=== PATIENT | male | born 1965 | race Caucasian/White ===

== ENCOUNTER 2023-10-05 12:05 | Observation (INO) ==
[2023-10-05 14:30] LABS: Basophils # (auto) 0.05 K/uL (0.00-0.20); Basophils % (auto) 0.6 %; Eosinophils # (auto) 0.29 K/uL (0.00-0.50); Eosinophils % (auto) 3.6 %; Hematocrit (blood only) 47.9 % (42.0-52.0); Hemoglobin 15.9 g/dl (14.0-18.0); Immature Granulocytes # (auto) 0.02 K/uL (0.01-0.20); Immature Granulocytes % (auto) 0.2 %; Lymphocytes # (auto) 2.45 K/uL (1.20-3.40); Lymphocytes % (auto) 30.1 %; Mean Corpuscular Hemoglobin 28.5 pg (25.0-34.0); Mean Corpuscular Hgb Conc 33.2 g/dL (32.0-36.0); Mean Corpuscular Volume 85.8 fL (80.0-100.0); Mean Platelet Volume 8.7 fL (9.4-12.4); Neutrophils # (auto) 4.44 K/uL (1.40-6.50); Neutrophils % (auto) 54.5 %; Platelet Count 277 K/uL (130-400); RDW Coefficient of Variation 12.5 % (11.5-14.5); RDW Standard Deviation 38.5 fL (36.4-46.3); Red Blood Count 5.58 M/uL (4.70-6.10); White Blood Count 8.15 K/ul (4.8-10.8)
[2023-10-05 14:49] LABS: Albumin Globulin Ratio 1.5 (0.9-2); Albumin Level 4.6 gm/dl (3.4-5.0); BUN Creatinine Ratio 26.6 (10-20); Calcium 9.6 mg/dl (8.6-10.3); Creatinine Clr Calc Pharmacy 118.8 ml/min; Est GFR (African American) 114.7 ml/min; Globulin 3.1 gm/dl (2.5-4.0); Potassium 3.9 mmol/L (3.5-5.1); Total Protein 7.7 gm/dl (6.0-8.3)
[2023-10-05 14:53] LABS: Troponin I High Sensitivity 4.3 pg/ml (0-20)
[2023-10-05 14:58] LABS: INR 0.9 (0.9-1.1); Partial Thromboplastin Time 28 Seconds (21-31); Prothrombin Time 10.3 Seconds (9.0-12.0)
--- NOTE | 2023-10-05 16:09 | Electrocardiogram Report ---
Test Reason : Blood Pressure : / mmHG Vent. Rate : 071 BPM Atrial Rate : 071 BPM P-R Int : 164 ms QRS Dur : 080 ms QT Int : 386 ms P-R-T Axes : 047 038 066 degrees QTc Int : 419 ms Normal sinus rhythm Normal ECG No previous ECGs available Confirmed by Kamran Mauro ([id number]) on 10/05/2023 4:09:16 PM Referred By: Confirmed By:Kamran Mauro
--- NOTE | 2023-10-05 16:24 | Emergency Department Note ---
Impression & Plan Hypertension, Hypertensive urgency ED Provider Note ED Provider Note NAME: MICHAEL GRIFFIN AGE:58 SEX: Male : 1965 ARRIVES VIA: Private vehicle INFORMANT: Patient ED PROVIDER(s): Emerita Holguin DO CHIEF COMPLAINT: High blood pressure HPI: This is a 58-year-old male presents emergency department after being referred here by his PCPs office due to concern for high blood pressure. Patient states he has a long history of high blood pressure and has been on losartan for many years. Dose was gradually increased over the course of these years and now he takes 100 mg daily. About a week ago he was not feeling well and blood pressure was checked and found to be elevated. PCP directed them to the emergency room at [facility] where he underwent blood work, check of urine, a CT head without contrast, and an ultrasound of his kidneys. He states that was all reported to him as normal as well. He was started on carvedilol 12.5 mg additionally. He followed up with his PCP and this was increased to 12.5 mg twice daily. He states he has been taking these as directed. No change in caffeine consumption, no change in stress level, no change in diet. Patient states he has had intermittent headaches, slightly blurred vision, a sense of "fogginess", and increased agitation/moodiness. No recent travel, no recent illness. Patient was scheduled to have an MRI and carotid Dopplers performed today however when they checked his blood pressure and it was markedly elevated and spoke with office staff they were told to go directly to the ER and that the tests should be rescheduled. PAST MEDICAL HISTORY:See Below PAST SURGICAL HISTORY:See Below FAMILY HISTORY:See Below SOCIAL HISTORY:See Below HOME MEDICATIONS:See Below ALLERGIES:See Below VITALS:See Below PHYSICAL EXAMINATION: GENERAL: alert, well appearing, well nourished, no distress, non-toxic EYE EXAM: normal conjunctiva, PERRL and EOM's grossly intact, no nystagmus OROPHARYNX: no exudate, no erythema, lips, buccal mucosa, and tongue normal and mucous membranes are moist NECK: supple, no nuchal rigidity, no adenopathy, non-tender LUNGS: Clear to auscultation. Normal chest wall mechanics, no w/r/r HEART: no murmurs, S1 normal and S2 normal ABDOMEN: abdomen soft, non-tender, normo-active bowel sounds, no masses, no rebound or guarding. BACK: Back is symmetrical on inspection and there is no deformity, no midline tenderness, no CVA tenderness. SKIN: no rashes, petechiae, orbruising UPPER EXTREMITIES: upper extremities are grossly normal. FROM, nml pulses b/l. LOWER EXTREMITIES: No pitting edema. FROM, nml pulses b/l. NEURO EXAM: Normal sensorium, cranial nerves II-XII grossly intact, normal speech, no facial droop,nogross weakness of arms, no gross weakness of legs. Gross sensation intact. No ataxia. Negative pronator drift, normal [id number]. Vital Signs: reviewed and remarkable Differential Diagnosis: headache, tension headache, cluster headache, migraine, subarachnoid hemorrhage, meningitis, mass, central venous thrombus, concussion, trauma and epidural/subdural hemorrhage. MEDICAL DECISION MAKING: This is a 58-year-old male with a history of hypertension who presents after being referred here by his PCP due to markedly elevated blood pressure reading at home today and symptoms of headache, blurred vision, "fogginess", and agitation. Patient noted to be markedly hypertensive on arrival here however other vital signs stable. Labs drawn and sent, IV established, EKG performed at bedside interpreted by me and once a patient room was available he was monitored on telemetry. Patient was initially seen in the waiting room area. Given symptoms and recent negative head CT, patient was sent for MRI of the brain which was reassuring. Additional labs were added. Patient given IV hydralazine with some improvement and then a dose of his oral carvedilol that had recently been initiated. Patient would have some temporary improvement and then blood pressures would begin increasing again. Additional IV hydralazine was added. After discussion with the patient and his at bedside regarding possible differential diagnosis, the importance of symptomatic control especially in light of his comorbidities, we discussed options for disposition. After additional discussion, we felt inpatient evaluation for improved blood pressure management as well as possible additional evaluation of the etiology of his worsening blood pressure recently was more reasonable. We discussed patient may benefit from an echo additionally. Case discussed with the hospitalist team for additional evaluation and management. Consultation(s): 2111: Discussed with Dr. Werner, [facility] hospitalist team, for additional evaluation and management. ER Treatment Provided: See below Diagnostics Interpreted By Me: -ECG: Normal sinus at 71, normal axis, normal intervals, no acute ST/T wave changes -Cardiac Monitoring: An order was placed for continuous cardiac monitoring. The monitor shows a rate of 72 with normal sinus rhythm. -Laboratory studies: As stated above and show below. -Imaging studies: X-ray Chest: A single view study of the chest was reviewed and was negative for cardiomegaly, focal infiltrate, effusion, pulmonary edema, or wide mediastinum. Triage Nursing Note Reviewed Prior/Outside Records Reviewed - CT head from [facility] reviewed and was negative per report, labs from that ER visit also reviewed and were reassuring Past Med/Surg History Social History Smoking Status: Never smoker Feels Safe at Home: Yes Allergies Allergies Allergy/AdvReac Type Severity Reaction Status Date / Time No Known Allergies Allergy Unverified 10/05/23 17:48 Home Meds Home Medications Medication Instructions Recorded Confirmed carvedilol 12.5 mg tablet 12.5 mg PO BID 10/05/23 10/05/23 empagliflozin 25 mg tablet 25 mg PO QAM 10/05/23 10/05/23 (Jardiance) losartan 100 mg tablet 100 mg PO QAM 10/05/23 10/05/23 metformin 500 mg tablet,extended 1 mg PO BID 10/05/23 10/05/23 release 24 hr Results & Data (ED) Vital Signs Vital Signs - 24 hr 10/05/23 12:11 10/05/23 17:27 10/05/23 17:29 Temperature 36.6 C Temperature Source Temporal Artery Scan Pulse Rate 84 68 Pulse Rate [Finger] 68 Pulse Rate from SpO2 Sensor Pulse Rhythm Regular Pulse Rhythm [Finger] Regular Pulse Strength Normal Pulse Strength [Finger] Normal Respiratory Rate 20 16 Respiratory Effort / Characteristics Non-Labored Spontaneous Non-Labored Spontaneous Respiratory Depth Normal Normal Respiratory Pattern Blood Pressure 229/129 H Blood Pressure [Left Arm] 193/114 H Blood Pressure Mean 162 Blood Pressure Mean [Left Arm] 140 Pulse Oximetry 97 97 Oxygen Delivery Method Room Air Room Air Sepsis Recent Fever Within 48 Hours No Sepsis New/Unexplained Change in Mental Status N/A Sepsis Action Taken by Nursing No Action Required 10/05/23 17:29 10/05/23 18:35 10/05/23 20:00 Temperature Temperature Source Pulse Rate 67 64 Pulse Rate [Finger] 71 Pulse Rate from SpO2 Sensor 64 Pulse Rhythm Regular Pulse Rhythm [Finger] Pulse Strength Pulse Strength [Finger] Respiratory Rate 20 18 23 Respiratory Effort / Characteristics Non-Labored Spontaneous Respiratory Depth Normal Respiratory Pattern Regular Blood Pressure Blood Pressure [Left Arm] 178/101 H Blood Pressure Mean Blood Pressure Mean [Left Arm] 126 Pulse Oximetry 97 99 99 Oxygen Delivery Method Room Air Sepsis Recent Fever Within 48 Hours Sepsis New/Unexplained Change in Mental Status Sepsis Action Taken by Nursing 10/05/23 20:00 10/05/23 20:10 10/05/23 20:20 Temperature Temperature Source Pulse Rate 71 68 Pulse Rate [Finger] Pulse Rate from SpO2 Sensor 71 68 Pulse Rhythm Pulse Rhythm [Finger] Pulse Strength Pulse Strength [Finger] Respiratory Rate 12 12 Respiratory Effort / Characteristics Respiratory Depth Respiratory Pattern Blood Pressure 186/120 H Blood Pressure [Left Arm] Blood Pressure Mean 135 Blood Pressure Mean [Left Arm] Pulse Oximetry 99 99 Oxygen Delivery Method Sepsis Recent Fever Within 48 Hours Sepsis New/Unexplained Change in Mental Status Sepsis Action Taken by Nursing 10/05/23 20:30 10/05/23 20:30 10/05/23 20:40 Temperature Temperature Source Pulse Rate 68 70 Pulse Rate [Finger] Pulse Rate from SpO2 Sensor 69 70 Pulse Rhythm Pulse Rhythm [Finger] Pulse Strength Pulse Strength [Finger] Respiratory Rate 17 13 Respiratory Effort / Characteristics Respiratory Depth Respiratory Pattern Blood Pressure 184/117 H Blood Pressure [Left Arm] Blood Pressure Mean 137 Blood Pressure Mean [Left Arm] Pulse Oximetry 98 98 Oxygen Delivery Method Sepsis Recent Fever Within 48 Hours Sepsis New/Unexplained Change in Mental Status Sepsis Action Taken by Nursing 10/05/23 20:50 10/05/23 21:00 10/05/23 21:00 Temperature Temperature Source Pulse Rate 70 81 Pulse Rate [Finger] Pulse Rate from SpO2 Sensor 71 82 Pulse Rhythm Pulse Rhythm [Finger] Pulse Strength Pulse Strength [Finger] Respiratory Rate 16 21 Respiratory Effort / Characteristics Respiratory Depth Respiratory Pattern Blood Pressure 187/130 H Blood Pressure [Left Arm] Blood Pressure Mean 142 Blood Pressure Mean [Left Arm] Pulse Oximetry 98 97 Oxygen Delivery Method Sepsis Recent Fever Within 48 Hours Sepsis New/Unexplained Change in Mental Status Sepsis Action Taken by Nursing 10/05/23 21:10 10/05/23 21:24 10/05/23 21:30 Temperature Temperature Source Pulse Rate 77 90 78 Pulse Rate [Finger] Pulse Rate from SpO2 Sensor 77 79 Pulse Rhythm Pulse Rhythm [Finger] Pulse Strength Pulse Strength [Finger] Respiratory Rate 18 19 Respiratory Effort / Characteristics Respiratory Depth Respiratory Pattern Blood Pressure Blood Pressure [Left Arm] Blood Pressure Mean Blood Pressure Mean [Left Arm] Pulse Oximetry 96 97 Oxygen Delivery Method Sepsis Recent Fever Within 48 Hours Sepsis New/Unexplained Change in Mental Status Sepsis Action Taken by Nursing 10/05/23 21:30 10/05/23 21:40 Temperature Temperature Source Pulse Rate 81 Pulse Rate [Finger] Pulse Rate from SpO2 Sensor 81 Pulse Rhythm Pulse Rhythm [Finger] Pulse Strength Pulse Strength [Finger] Respiratory Rate 17 Respiratory Effort / Characteristics Respiratory Depth Respiratory Pattern Blood Pressure 181/107 H Blood Pressure [Left Arm] Blood Pressure Mean 123 Blood Pressure Mean [Left Arm] Pulse Oximetry 96 Oxygen Delivery Method Sepsis Recent Fever Within 48 Hours Sepsis New/Unexplained Change in Mental Status Sepsis Action Taken by Nursing Laboratory Data 10/05/23 14:11 10/05/23 14:11 Lab Results 10/05/23 Range/Units 14:11 WBC 8.15 (4.8-10.8) K/ul RBC 5.58 (4.70-6.10) M/uL Hgb 15.9 (14.0-18.0) g/dl Hct 47.9 (42.0-52.0) % MCV 85.8 (80.0-100.0) fL MCH 28.5 (25.0-34.0) pg MCHC 33.2 (32.0-36.0) g/dL RDW Std Deviation 38.5 (36.4-46.3) fL RDW Coeff of Evan 12.5 (11.5-14.5) % Plt Count 277 (130-400) K/uL MPV 8.7 L (9.4-12.4) fL Immature Gran % (Auto) 0.2 % Neut % (Auto) 54.5 % Lymph % (Auto) 30.1 % [place] % (Auto) 11.0 % Eos % (Auto) 3.6 % Baso % (Auto) 0.6 % Neut # (Auto) 4.44 (1.40-6.50) K/uL Lymph # (Auto) 2.45 (1.20-3.40) K/uL [place] # (Auto) 0.90 H (0.11-0.59) K/uL Eos # (Auto) 0.29 (0.00-0.50) K/uL Baso # (Auto) 0.05 (0.00-0.20) K/uL Immature Gran # (Auto) 0.02 (0.01-0.20) K/uL PT 10.3 (9.0-12.0) Seconds INR 0.9 (0.9-1.1) APTT 28 (21-31) Seconds PTT Ratio 1.0 Sodium 141 (136-145) mmol/L Potassium 3.9 (3.5-5.1) mmol/L Chloride 107 (98-107) mmol/L Carbon Dioxide 27 (21-32) mmol/L Anion Gap 7 (3-11) BUN 21 (6-23) mg/dl Creatinine 0.79 (0.6-1.4) mg/dl Est Cr Clr Drug Dosing 118.8 ml/min Est GFR ( Amer) 114.7 ml/min Est GFR (Non-Af Amer) 99.0 ml/min BUN/Creatinine Ratio 26.6 H (10-20) Glucose 108 H (70-99(Fasting)) mg/dl Calcium 9.6 (8.6-10.3) mg/dl Magnesium 2.2 (1.7-2.4) mg/dl Total Bilirubin 1.0 (0.2-1.0) mg/dl AST 13 (13-39) U/L ALT 15 (7-52) U/L Alkaline Phosphatase 39 (34-104) U/L Troponin I High Sens 4.3 (0-20) pg/ml Total Protein 7.7 (6.0-8.3) gm/dl Albumin 4.6 (3.4-5.0) gm/dl Globulin 3.1 (2.5-4.0) gm/dl Albumin/Globulin Ratio 1.5 (0.9-2) TSH 2.648 (0.300-4.500) uIu/ml Administered Medications Discontinued Medications Amlodipine Besylate (Amlodipine Besylate 5 Mg Tab) 2.5 mg PO ONE STA Stop: 10/05/23 22:29 Last Admin: 10/05/23 23:11 Dose: 2.5 mg Documented By: ALEXIS Carvedilol (Carvedilol 12.5 Mg Tab) 12.5 mg PO NOW ONE Stop: 10/05/23 18:29 Last Admin: 10/05/23 18:50 Dose: 12.5 mg Documented By: ALEXIS Hydralazine HCl (Hydralazine Hcl 20 Mg/Ml Vial) 5 mg IV NOW ONE Stop: 10/05/23 17:39 Last Admin: 10/05/23 17:45 Dose: 5 mg Documented By: DENISE Hydralazine HCl (Hydralazine Hcl 20 Mg/Ml Vial) 5 mg IV NOW ONE Stop: 10/05/23 20:18 Last Admin: 10/05/23 20:47 Dose: 5 mg Documented By: ALEXIS Imaging Data Radiologist's Impression: Brain MRI 10/05/23 16:16 MR brain wo con HISTORY: 58 years-old Male htn, blurred vision, garcia hypertension with headache and blurry vision COMPARISON: None TECHNIQUE: Multiplanar multisequence MRI of the brain was obtained without the use of IV contrast. FINDINGS: No restricted diffusion. Midline structures are unremarkable. No acute intracranial hemorrhage, midline shift, abnormal extra-axial collection, hydrocephalus or intra-axial mass. The cerebral venous sinuses and major arterial flow voids appear patent. Skull, orbits and soft tissues are unremarkable. Moderate mastoid effusions. Mild mucosal thickening of the paranasal sinuses. Rightward bowing and spurring of the nasal septum. Volume and signal characteristics of the brain parenchyma are within normal limits. IMPRESSION: No acute intracranial abnormality. No acute or subacute infarct. ACT 112: Negative or not required by law. The above report was generated using voice recognition software. It may contain grammatical, syntax or spelling errors. Electronically signed by: David Navarro M.D. 10/05/2023 5:28 PM Discharge Plan Visit Data Chief Complaint: Hypertension Stated Complaint: HIGH BP, REF BY DOC ED Provider: Emerita Holguin Discharge Problem: Hypertension, Hypertensive urgency
[2023-10-05 16:38] LABS: Magnesium 2.2 mg/dl (1.7-2.4)
[2023-10-05 16:52] LABS: Thyroid Stimulating Hormone 2.648 uIu/ml (0.300-4.500)
--- NOTE | 2023-10-05 17:30 | Magnetic Resonance Report ---
MR brain wo con HISTORY: 58 years-old Male htn, blurred vision, garcia hypertension with headache and blurry vision COMPARISON: None TECHNIQUE: Multiplanar multisequence MRI of the brain was obtained without the use of IV contrast. FINDINGS: No restricted diffusion. Midline structures are unremarkable. No acute intracranial hemorrhage, midli ne shift, abnormal extra-axial collection, hydrocephalus or intra-axial mass. The cerebral venous sin uses and major arterial flow voids appear patent. Skull, orbits and soft tissues are unremarkable. Mo derate mastoid effusions. Mild mucosal thickening of the paranasal sinuses. Rightward bowing and spur ring of the nasal septum. Volume and signal characteristics of the brain parenchyma are within normal limits. IMPRESSION: No acute intracranial abnormality. No acute or subacute infarct. ACT 112: Negative or not required by law. The above report was generated using voice recognition software. It may contain grammatical, syntax o r spelling errors. Electronically signed by: David Navarro M.D. 10/05/2023 5:28 PM
[2023-10-05] MEDS: hydrALAZINE HCL 20 MG/ML VIAL IV ONE ×2 (17:45→20:47)
[2023-10-05] MEDS: carvediloL 12.5 MG TAB PO ONE (18:50)
--- NOTE | 2023-10-05 21:44 | History & Physical Report ---
Date of Service October 05, 2023 Assessment & Plan (1) Hypertensive emergency: Plan: Improved after initial intervention at the ER undiagnosed KILLIAN possibly contributory to BP elevation DM 2 on oral medications, unknown baseline control OBS PCU Add amlodipine to current Coreg and losartan medications (Unable to go up on current Coreg dose given episodic heart rate of 60s documented at the ER.) Outpatient sleep study Nephrology consult Re: Uncontrolled hypertension Basal bolus insulin, ISS BG goal 1 10-1 40, carb count coverage, check hemoglobin A1c DVT prophylaxis per Lovenox subcu Full code Text document was generated using [employer] voice recognition software. It may contain grammatical or spelling errors. Kindly contact undersigned for clarification of any documentation item in question. History of Present Illness Chief Complaint: High blood pressure Primary Care Provider: MEGA Junior History obtained from patient, family, and records. Medical history significant for hypertension, DM 2 on oral medications. Patient has had blood pressure elevation as a young adult but was only started on blood pressure medicine about 10 years ago. Does not recall prior workup for secondary hypertension. Patient noted having intermittent pressure-like headache symptoms with bilateral blurred vision, feeling foggy, and short tempered last week. Usual work stressors. No inordinate OTC NSAID intake. Compliant with home BP med. Possible sleep apnea with witnessed apneic events as per . No chest pain, no SOB. Patient seen at [facility] ER last week. SBP 190s. CT head and renal ultrasound unremarkable. ER provider started patient on Coreg following advice of plant operations vice president on-call. Outpatient nephrology follow-up recommended. Unimproved blood pressure and worsening symptoms at home despite compliance with new Coreg Rx. SBP 190s to 210s as per . Patient directed to ER for evaluation. SBP 220s upon arrival at the ER. IV hydralazine and Coreg administered at the ER. SBP currently 180s. Medical History as above Surgical History : Knee surgery Family History : Heart disease, DM, stroke Personal/Social history : Non-smoker, occasional EtOH intake, district supervisor Allergies Allergy/AdvReac Type Severity Reaction Status Date / Time No Known Allergies Allergy Unverified 10/05/23 17:48 Home Medications Medication Instructions Recorded Confirmed Type carvedilol 12.5 mg tablet 12.5 mg PO BID 10/05/23 10/05/23 History empagliflozin 25 mg tablet 25 mg PO QAM 10/05/23 10/05/23 History (Jardiance) losartan 100 mg tablet 100 mg PO QAM 10/05/23 10/05/23 History metformin 500 mg tablet,extended 1 mg PO BID 10/05/23 10/05/23 History release 24 hr Past Med/Surg History Medical History (Updated 10/06/23 @ 09:29 by Galina Gibbons MD, PhD) Diabetes mellitus Hypertension Social History Smoking Status: Never smoker Hx Alcohol Use: Yes Alcohol type: beer Hx Substance Use: No Communication Ability: Effective Beliefs That Will Affect Care: None Current Living Situation: Spouse Feels Safe at Home: Yes Assistive Devices: Glasses Review of Systems Review of Systems: As per HPI, all other systems reviewed and negative Physical Exam Physical Exam: GENERAL: Comfortable, pleasant, no respiratory distress SKIN: Normal color, warm HEENT: [place] palpebral conjunctivae, no ptosis, moist buccal mucosa NECK : Supple, no tenderness CHEST : CTA, no tenderness HEART : RRR, no obvious murmurs ABDOMEN: no distention, nontender EXTREMITIES : No LE swelling/tenderness, no other conspicuous deformities noted NEUROLOGIC : Coherent, no facial asymmetry, no other gross focality Results & Data Results & Data Vital Signs (Past 12 Hours) Vital Signs Temp Pulse Pulse Resp BP BP Pulse Ox 10/05/23 21:24 90 10/05/23 20:40 70 13 98 10/05/23 20:30 184/117 H 10/05/23 20:30 68 17 98 10/05/23 20:20 68 12 99 10/05/23 20:10 71 12 99 10/05/23 20:00 186/120 H 10/05/23 20:00 64 23 99 10/05/23 18:35 71 18 178/101 H 99 10/05/23 17:29 67 20 97 10/05/23 17:29 68 16 193/114 H 97 10/05/23 17:27 68 10/05/23 12:11 36.6 C 84 20 229/129 H 97 O2 Del Method 10/05/23 21:24 10/05/23 20:40 10/05/23 20:30 10/05/23 20:30 10/05/23 20:20 10/05/23 20:10 10/05/23 20:00 10/05/23 20:00 10/05/23 18:35 10/05/23 17:29 Room Air 10/05/23 17:29 Room Air 10/05/23 17:27 10/05/23 12:11 Room Air Laboratory Results Laboratory Results WBC 8.15 K/ul (4.8-10.8) 10/05/23 14:11 RBC 5.58 M/uL (4.70-6.10) 10/05/23 14:11 Hgb 15.9 g/dl (14.0-18.0) 10/05/23 14:11 Hct 47.9 % (42.0-52.0) 10/05/23 14:11 MCV 85.8 fL (80.0-100.0) 10/05/23 14:11 MCH 28.5 pg (25.0-34.0) 10/05/23 14:11 MCHC 33.2 g/dL (32.0-36.0) 10/05/23 14:11 RDW Std Deviation 38.5 fL (36.4-46.3) 10/05/23 14:11 RDW Coeff of Evan 12.5 % (11.5-14.5) 10/05/23 14:11 Plt Count 277 K/uL (130-400) 10/05/23 14:11 MPV 8.7 fL (9.4-12.4) L 10/05/23 14:11 Immature Gran % (Auto) 0.2 % 10/05/23 14:11 Neut % (Auto) 54.5 % 10/05/23 14:11 Lymph % (Auto) 30.1 % 10/05/23 14:11 [place]mer[place]da % (Auto) 11.0 % 10/05/23 14:11 Eos % (Auto) 3.6 % 10/05/23 14:11 Baso % (Auto) 0.6 % 10/05/23 14:11 Neut # (Auto) 4.44 K/uL (1.40-6.50) 10/05/23 14:11 Lymph # (Auto) 2.45 K/uL (1.20-3.40) 10/05/23 14:11 Esmer[place]da # (Auto) 0.90 K/uL (0.11-0.59) H 10/05/23 14:11 Eos # (Auto) 0.29 K/uL (0.00-0.50) 10/05/23 14:11 Baso # (Auto) 0.05 K/uL (0.00-0.20) 10/05/23 14:11 Immature Gran # (Auto) 0.02 K/uL (0.01-0.20) 10/05/23 14:11 PT 10.3 Seconds (9.0-12.0) 10/05/23 14:11 INR 0.9 (0.9-1.1) 10/05/23 14:11 APTT 28 Seconds (21-31) 10/05/23 14:11 PTT Ratio 1.0 10/05/23 14:11 Sodium 141 mmol/L (136-145) 10/05/23 14:11 Potassium 3.9 mmol/L (3.5-5.1) 10/05/23 14:11 Chloride 107 mmol/L (98-107) 10/05/23 14:11 Carbon Dioxide 27 mmol/L (21-32) 10/05/23 14:11 Anion Gap 7 (3-11) 10/05/23 14:11 BUN 21 mg/dl (6-23) 10/05/23 14:11 Creatinine 0.79 mg/dl (0.6-1.4) 10/05/23 14:11 Est Cr Clr Drug Dosing 118.8 ml/min 10/05/23 14:11 Est GFR ( Amer) 114.7 ml/min 10/05/23 14:11 Est GFR (Non-Af Amer) 99.0 ml/min 10/05/23 14:11 BUN/Creatinine Ratio 26.6 (10-20) H 10/05/23 14:11 Glucose 108 mg/dl (70-99(Fasting)) H 10/05/23 14:11 Calcium 9.6 mg/dl (8.6-10.3) 10/05/23 14:11 Magnesium 2.2 mg/dl (1.7-2.4) 10/05/23 14:11 Total Bilirubin 1.0 mg/dl (0.2-1.0) 10/05/23 14:11 AST 13 U/L (13-39) 10/05/23 14:11 ALT 15 U/L (7-52) 10/05/23 14:11 Alkaline Phosphatase 39 U/L (34-104) 10/05/23 14:11 Troponin I High Sens 4.3 pg/ml (0-20) 10/05/23 14:11 Total Protein 7.7 gm/dl (6.0-8.3) 10/05/23 14:11 Albumin 4.6 gm/dl (3.4-5.0) 10/05/23 14:11 Globulin 3.1 gm/dl (2.5-4.0) 10/05/23 14:11 Albumin/Globulin Ratio 1.5 (0.9-2) 10/05/23 14:11 TSH 2.648 uIu/ml (0.300-4.500) 10/05/23 14:11 Impressions Brain MRI 10/05/23 16:16 MR brain wo con HISTORY: 58 years-old Male htn, blurred vision, garcia hypertension with headache and blurry vision COMPARISON: None TECHNIQUE: Multiplanar multisequence MRI of the brain was obtained without the use of IV contrast. FINDINGS: No restricted diffusion. Midline structures are unremarkable. No acute intracranial hemorrhage, midline shift, abnormal extra-axial collection, hydrocephalus or intra-axial mass. The cerebral venous sinuses and major arterial flow voids appear patent. Skull, orbits and soft tissues are unremarkable. Moderate mastoid effusions. Mild mucosal thickening of the paranasal sinuses. Rightward bowing and spurring of the nasal septum. Volume and signal characteristics of the brain parenchyma are within normal limits. IMPRESSION: No acute intracranial abnormality. No acute or subacute infarct. ACT 112: Negative or not required by law. The above report was generated using voice recognition software. It may contain grammatical, syntax or spelling errors. Electronically signed by: David Navarro M.D. 10/05/2023 5:28 PM Diagnostic Findings EKG as per my interpretation : Rate 70, NSR, normal axis, T wave abnormalities lateral leads
[2023-10-05] MEDS ORDERED: GLUCOSE 40% GEL 15 GM TUBE PO PRN (22:21)
[2023-10-05] MEDS ORDERED: PROMETHAZINE HCL 12.5 MG in SODIUM CHLORIDE 0.9% 50 ML IV PRN (22:21)
[2023-10-05] MEDS ORDERED: GLUCAGON FOR INJ 1 MG VIAL SQ PRN (22:21)
[2023-10-05] MEDS ORDERED: GLUCOSE 10 TAB/TUBE PO PRN (22:21)
[2023-10-05] MEDS ORDERED: LORazepam 0.5 MG TAB PO PRN (22:21)
[2023-10-05] MEDS ORDERED: traMADol HCL 50 MG TABLET PO PRN (22:21)
[2023-10-05] MEDS ORDERED: DEXTROSE 50% 50 ML SYRINGE IV PRN (22:21)
[2023-10-05] MEDS ORDERED: CARBOHYDRATES FOR HYPOGLYCEMIA PO PRN (22:21)
[2023-10-05] MEDS: amLODIPine BESYLATE 5 MG TAB PO STA (23:11)
[2023-10-06] MEDS: amLODIPine BESYLATE 5 MG TAB PO STA (02:57)
[2023-10-06 04:39] LABS: Basophils # (auto) 0.05 K/uL (0.00-0.20); Basophils % (auto) 0.6 %; Eosinophils # (auto) 0.26 K/uL (0.00-0.50); Eosinophils % (auto) 3.3 %; Hematocrit (blood only) 42.7 % (42.0-52.0); Hemoglobin 14.3 g/dl (14.0-18.0); Immature Granulocytes # (auto) 0.02 K/uL (0.01-0.20); Immature Granulocytes % (auto) 0.3 %; Lymphocytes # (auto) 2.57 K/uL (1.20-3.40); Lymphocytes % (auto) 32.3 %; Mean Corpuscular Hemoglobin 28.9 pg (25.0-34.0); Mean Corpuscular Hgb Conc 33.5 g/dL (32.0-36.0); Mean Corpuscular Volume 86.3 fL (80.0-100.0); Mean Platelet Volume 8.8 fL (9.4-12.4); Monocytes # (auto) 1.04 K/uL (0.11-0.59); Monocytes % (auto) 13.1 %; Neutrophils # (auto) 4.01 K/uL (1.40-6.50); Neutrophils % (auto) 50.4 %; Platelet Count 260 K/uL (130-400); RDW Coefficient of Variation 12.6 % (11.5-14.5); RDW Standard Deviation 39.2 fL (36.4-46.3); Red Blood Count 4.95 M/uL (4.70-6.10); White Blood Count 7.95 K/ul (4.8-10.8)
[2023-10-06 04:51] LABS: BUN Creatinine Ratio 25.7 (10-20); Creatinine Clr Calc Pharmacy 126.8 ml/min; Est GFR (African American) 117.8 ml/min; Est GFR (Non-African American) 101.7 ml/min; Potassium 3.5 mmol/L (3.5-5.1)
[2023-10-06] MEDS: carvediloL 12.5 MG TAB PO STA (05:34)
--- NOTE | 2023-10-06 07:03 | XRay Report ---
XR chest 1V portable CLINICAL HISTORY: htn TECHNIQUE: Single frontal radiograph of the chest was obtained. Comparison: None available at the time of this dictation. FINDINGS: No lines and tubes are seen. The cardiomediastinal silhouette is normal. The lungs are clear. No evid ence of pleural effusion or pneumothorax. IMPRESSION: No acute chest disease. ACT 112: Negative or not required by law. Electronically signed by: Bridger Stinson M.D. 10/06/2023 7:01 AM
[2023-10-06] MEDS ORDERED: INSULIN ASPART PER UNIT CHARGE SC SCH (07:30)
[2023-10-06 07:34] LABS: Estimated Average Glucose 203 mg/dl; Hemoglobin A1C 8.7 % (4.5-5.6)
[2023-10-06] MEDS ORDERED: carvediloL 12.5 MG TAB PO SCH ×2 (08:00→17:00)
[2023-10-06] MEDS: carvediloL 12.5 MG TAB PO SCH (08:42)
[2023-10-06] MEDS: LOSARTAN POTASSIUM 50 MG TAB PO SCH (08:42)
[2023-10-06] MEDS: ENOXAPARIN INJ 40 MG/0.4 ML SYR SQ SCH (08:43)
[2023-10-06] MEDS: LANTUS PER UNIT CHARGE SQ SCH (08:43)
[2023-10-06] MEDS: INSULIN ASPART PER UNIT CHARGE SC SCH (08:43)
[2023-10-06] MEDS ORDERED: LOSARTAN POTASSIUM 50 MG TAB PO SCH (09:00)
[2023-10-06] MEDS ORDERED: hydrALAZINE HCL 20 MG/ML VIAL IV PRN (09:19)
--- NOTE | 2023-10-06 09:35 | Nephrology Consultation ---
Date of Consultation October 06, 2023 Assessment & Plan (1) Hypertensive urgency: ongoing hypertensive urgency w/o evidence of acute end organ damage. some transient cognitive lapses adn feeling "in a fog" but not florid confusion. notable hypokalemia in the setting of uncontrolled HTN despite ARB as OP >> ddx includes aldosteronism, renovascular HTN, Ernesto's syndrome, [place]'s disease, non aldosterone mediated MC excess -will check trenton and renin levels now in SEATED patient; than saline infusion test > did d/w ER nurse SALINE INFUSION TEST (ideally 8-noon >> we'll do it 10-2) -pt to be SEATED for duration of this test as much as possible except biobreaks -draw baseline trenton, renin levels -infuse 2L NS over 4 hrs -repeat trenton levels at end of 4 hrs -intensified prn meds labetalol and hydralazine-likely to need these during infusion test -continue losartan, amlodipine, coreg -will add likely 1-2 diuretics once above test is complete ------ -ordered renovascular scan to be done today NEPHRO RECOMMENDATIONS -can be d/c home once RV scan complete -will enroll him in our remote bp monitoring program and mail him literature for correct BP home check technique >> clinic nurses aware -will f/u on above tests which will be pending -low Na diet < 2 gm advised -pls advise nsaid avoidance though ASA 81 mg daily ok -avoid decongestants unless for high BP pts -pls order OP sleep study at [facility] -continue coreg, losartan current doses >start chlorthalidone 12.5 mg daily, spironolactone 12.5 mg daily (1/2 of 25 mg tablet) >start potassium 20 mEQ daily -after one week on above meds, check BMP -needs hospital DC appt w/ me in 10-14 days [facility]; pt to bring both/all home bp cuffs along -alarm sx prompting immediate ER eval were reviewed w/ pt and his ABove careplan for tests, med changes reviewed w/ Dr Narayanan who is in agreement. I spent a total of 95 minutes coordinating, documenting, and providing care for this patient excluding time spent in the performance of separately billed services. This included personally reviewing all current laboratories and imaging studies, medication reconciliation, outpatient chart review, and discussion with other physicians, with nursing, and as applicable with the patient and family. History of Present Illness Reason for Consultation: HTN Requesting Physician: Dr Bravo Attending Physician: Eve Narayanan MD History of Present Illness 58 y/o M whom I'm asked to see for HTN is under observation for hypertensive emergency after he presented for intermittent AGUILERA w/ BL blurred vision, irritability and "feeling foggy." PMH includes HTN for about 10 years, DM. 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 His states he does not sleep well at night and often stops breathing. Seen in [facility] ER last week for similar symptoms w/ SBP 190s; CT head, renal u/s unremarkable. Started on coreg and OP nephro f/u recommended > scheduled at [facility] for mid November. SBP at home still 190-210s on home cuff. he has for HTN so far received losartan 100 mg this am, coreg 12.5 mg this am. last evening he had hydralazine 5 mg IV x 2 doses, coreg 12.5 mg x 2 doses overnight in addition to am, 2.5 mg amlodipine x 2 doses. He has prn hydralazine and labetalol ordered but not used so far. He has had significant mood changes mood swings w/ irritability and has had trouble recalling names at work and/or filling out forms correctly. He and his report an abrupt change in his mood and mental acuity in the past 10 days. 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 Avid bow kg and goes out every fall for this. Social EtOH; no nsaids recently except Started a baby aspirin these past 10 days. He had a tooth issue in July and took ibuprofen at that time both parents of cancer > mom colon w/ liver mets, dad lung and bone CA. no hx of premature /sudden except paternal grandfather d/o DE in his 50s who was also a entry examiner. no weight changes, no f/c. He sometimes has the feeling his face is flushing when BP rises. no palpitations, no tachycardia, no dyspnea cough orthopnea. no focal numbness or weakness stable chronic mild neuropathy; chronic pain L knee and L shoulder. no n/v/d/c/abd pain. mood changes and some cognitive slips as above; denies anxiety or depression but does admit to liking to micromanage. Allergies Allergy/AdvReac Type Severity Reaction Status Date / Time No Known Allergies Allergy Unverified 10/05/23 17:48 Home Medications Medication Instructions Recorded Confirmed Type carvedilol 12.5 mg tablet 12.5 mg PO BID 10/05/23 10/05/23 History empagliflozin 25 mg tablet 25 mg PO QAM 10/05/23 10/05/23 History (Jardiance) losartan 100 mg tablet 100 mg PO QAM 10/05/23 10/05/23 History metformin 500 mg tablet,extended 1 mg PO BID 10/05/23 10/05/23 History release 24 hr Patient History Medical History (Updated 10/06/23 @ 09:29 by Galina Gibbons MD, PhD) Diabetes mellitus Hypertension Surgical History (Updated 10/06/23 @ 15:09 by Galina Gibbons MD, PhD) H/O knee surgery Family History (Updated 10/06/23 @ 14:54 by Galina Gibbons MD, PhD) Father Cancer Mother Cancer Social History Smoking Status: Never smoker Hx Alcohol Use: Yes Alcohol type: beer Hx Substance Use: No Communication Ability: Effective Beliefs That Will Affect Care: None Current Living Situation: Spouse Feels Safe at Home: Yes Assistive Devices: None Review of Systems 2 Review of Systems: All systems reviewed & are unremarkable except as noted in HPI & below Physical Exam 2 Constitutional: well developed and well nourished Eyes: EOM intact bilaterally ENMT: Ears: no external ear abnormality Nose: no external nose abnormality Mouth: + dry oral mucous membranes Neck: no nuchal rigidity Respiratory: normal respiratory effort Auscultation: + diminished lung sounds Cardiovascular: RRR, no murmur, no edema Vessels: radial pulses present; no carotid bruit and no bounding carotid pulses Gastrointestinal (Abdomen): Inspection/Auscultation: normal bowel sounds P ercussion/Palpation: abdomen soft; abdomen nontender Musculoskeletal: Extremities: strength 5/5 throughout Skin: no rashes, warm and dry Neurologic: jasmine, fluent speech, no tremor Psychiatric: Orientation: alert and oriented x 3 Results & Data Vital Signs (Past 12 Hours) Vital Signs Pulse Pulse Resp BP BP Pulse Ox Pulse Ox 10/06/23 08:50 84 18 166/99 H 97 10/06/23 08:50 97 10/06/23 07:02 69 10/06/23 06:08 85 16 175/109 H 98 10/06/23 04:30 73 18 195/123 H 97 10/06/23 04:00 75 12 177/107 H 98 10/06/23 03:00 78 16 189/113 H 94 10/06/23 02:30 74 12 171/110 H 94 10/06/23 01:30 80 14 200/108 H 94 10/06/23 00:30 78 20 165/96 H 91 10/06/23 00:00 81 12 171/105 H 96 10/05/23 23:43 74 10/05/23 23:10 74 16 98 10/05/23 23:00 164/87 H 10/05/23 23:00 77 22 96 10/05/23 22:50 77 15 97 10/05/23 22:40 77 24 96 10/05/23 22:30 179/104 H 10/05/23 22:30 79 18 96 10/05/23 22:20 76 14 96 10/05/23 22:10 77 16 97 10/05/23 22:01 188/101 H 10/05/23 22:01 77 24 94 10/05/23 22:00 80 22 97 10/05/23 21:50 81 20 97 10/05/23 21:40 81 17 96 10/05/23 21:30 181/107 H 10/05/23 21:30 78 19 97 10/05/23 21:24 90 O2 Del Method O2 Del Method 10/06/23 08:50 Room Air 10/06/23 08:50 Room Air 10/06/23 07:02 10/06/23 06:08 Room Air 10/06/23 04:30 10/06/23 04:00 10/06/23 03:00 10/06/23 02:30 10/06/23 01:30 10/06/23 00:30 10/06/23 00:00 10/05/23 23:43 10/05/23 23:10 10/05/23 23:00 10/05/23 23:00 10/05/23 22:50 10/05/23 22:40 10/05/23 22:30 10/05/23 22:30 10/05/23 22:20 10/05/23 22:10 10/05/23 22:01 10/05/23 22:01 10/05/23 22:00 10/05/23 21:50 10/05/23 21:40 10/05/23 21:30 10/05/23 21:30 10/05/23 21:24 Laboratory Results 10/06/23 03:45 10/06/23 03:45 TSH WNL UA and ACR last week GLH > ACR 77; no unexpected UA ff Diagnostic Findings ECG NSR; also NSR last week CXR no acute disease MRI brain > no acute or subacute infarct
[2023-10-06] MEDS ORDERED: LABETALOL HCL IV 5 MG/ML 20ML IV PRN (09:48)
[2023-10-06] MEDS: SODIUM CHLORIDE 0.9% 1,000 ML IV STA (10:13)
[2023-10-06] MEDS: SODIUM CHLORIDE 0.9% 1,000 ML IV ONE (12:15)
--- NOTE | 2023-10-06 14:43 | Hospitalist Progress Note ---
Date of Service October 06, 2023 Assessment & Plan (1) Hypertensive urgency: Plan 58-year-old male with PMH of HTN/compliant with home BP medications, T2DM on oral/injection medications presented with failure to control blood pressure at home [patient was recently started on Coreg on top of his prior losartan] with progressive worsening and consistent high blood pressure readings associated with intermittent pressure-like headache symptoms. Of note, he was seen recently at [facility] ER where Coreg was added and CT head and renal ultrasound were done/were unremarkable. He is being managed for the following: Hypertensive urgency: Patient came in with increased blood pressure associated with headache Recently evaluated at [facility], Coreg was added. Admitting brain MRI and CXR with no acute finding. Admitting troponin negative, EKG with no acute ST or T changes. Will get echo. Continue with home losartan, Coreg. Amlodipine added. Nephrology on board, optimizing BP medications. Continue telemetry monitoring, as needed BP meds. F/u w/ nephro on DC. Uncontrolled diabetes: Patient reports having A1c of 14 about few years ago, A1c of 8.7 currently. Patient on Jardiance, metformin and Xultophy at home. Patient and his has been updated regarding the need for tighter control of his diabetes. They stated that they will follow-up with diabetic clinic upon discharge for medication changes. Lifestyle modification has been encouraged. neurology teacher consult. Possible sleep apnea: Patient with witnessed apneic events as per . Will do nocturnal pulse oximetry while in here. Sleep study as an outpatient. Might be contributing to BP elevation. DVT prophylaxis per Lovenox subcu Full code Text document was generated using [employer] voice recognition software. It may contain grammatical or spelling errors. Kindly contact undersigned for clarification of any documentation item in question. Admission and Anticipated Discharge Date Admission Date: October 05, 2023 Subjective Patient was seen and examined at bedside. Patient was sitting up in chair, on room air, NAD, resting comfortably. Patient denies chest pain or shortness of breath or abdominal pain. Patient denies any febrile illness or flulike illness in the recent past. Patient reports some occasional and intermittent headaches likely associated with tightly blood pressure. Patient reports having very high blood pressure readings almost consistently at home. Physical Exam Physical Exam: GENERAL: Comfortable, pleasant, no respiratory distress SKIN: Normal color, warm HEENT: [place] palpebral conjunctivae, no ptosis, moist buccal mucosa NECK : Supple, no tenderness CHEST : CTA, no tenderness HEART : RRR, no obvious murmurs ABDOMEN: no distention, nontender EXTREMITIES : No LE swelling/tenderness, no other conspicuous deformities noted NEUROLOGIC : Coherent, no facial asymmetry, no other gross focality Results & Data Results & Data Vital Signs (Past 12 Hours) Vital Signs Pulse Pulse Resp BP BP Pulse Ox Pulse Ox 10/06/23 08:50 84 18 166/99 H 97 10/06/23 08:50 97 10/06/23 07:02 69 10/06/23 06:08 85 16 175/109 H 98 10/06/23 04:30 73 18 195/123 H 97 10/06/23 04:00 75 12 177/107 H 98 10/06/23 03:00 78 16 189/113 H 94 10/06/23 02:30 74 12 171/110 H 94 O2 Del Method O2 Del Method 10/06/23 08:50 Room Air 10/06/23 08:50 Room Air 10/06/23 07:02 10/06/23 06:08 Room Air 10/06/23 04:30 10/06/23 04:00 10/06/23 03:00 10/06/23 02:30
--- OUTSIDE RECORDS SUMMARY | 2023-10-06 14:49 | External Medical Summary | Summary of Care ---
Author Name Unknown Organization [facility] [address] [place] [address] Phone [phone] Care Team Providers Care Psychiatric Security Nurse Name Role Phone Barry Latif PA-C Primary Care Provid er Reason for Visit * Reason Onset Date Comments Appointment 10/04/2023 Encounter Details Date Type Department Care Team ([facility] st Contact Info) Description 10/04/2023 Telephone Radiology, [phone] [address] Appointment Allergies No known active allergiesdocumented as of this encounter (statuses as of 10/04/2023) Medications Medication Sig Dispensed Refills Start Date End Date Status Jardiance 25 MG Oral Tablet Take 1 Tablet by mouth in the morning. 0 06/15/2023 Active Xultophy 100-3.6 UNIT-MG/ML Subcutaneous Solution Pen-injector inject 20 units sc daily (increase in dose) 0 05/16/2023 Active Losartan Potassium 100 MG Oral Tablet (Cozaar) Take 1 Tablet by mouth in the morning. 0 06/15/2023 Active metFORMIN HCl ER 500 MG Oral Tablet Extended Release 24 Hour (Glucophage XR) Take 1 Tablet by mouth in the morning and 1 Tablet before bedtime. 0 05/16/2023 Active Azithromycin 250 MG Oral Tablet (Zithromax Z-Sean)Indications:Pneu monia of right lower lobe due to infectious organism Take two tablets by mouth on first day, then 1 tablet daily until gone 6 Tablet 0 07/10/2023 Active Carvedilol 12.5 MG Oral Tablet (Coreg) Take 0.5 Tablets by mouth in the morning and 0.5 Tablets before bedtime. 60 Tablet 0 09/29/2023 Active documented as of this encounter (statuses as of 10/04/2023) Active Problems No known active problems documented as of this encounter (statuses as of 10/04/2023) Social History Tobacco Use Types Packs/Day Years Used Date Smoking Tobacco: Never Smokeless Tobacco: Former Alcohol Use Standard Drinks/Week Comments Yes 0 (1 standard drink = 0.6 oz pur e alcohol) Sex and Gender Information Value Date Recorded Sex Assigned at Not on file Gender Identity Not on file Sexual Orientation Not on file Job Start Date Occupation Industry Not on file Not on file Not on file documented as of this encounter Miscellaneous Notes * Telephone Encounter - Catie Major [place] - 10/04/2023 1:42 PM EST Name: Nitish Major Do you have any of the following: Pacemaker, stents, heart valves, aneurysm clips? No Have you ever worked with metal or have you ever gotten metal in your eyes? No Have you had a colonoscopy in the last 30 days? No Are you on dialysis? No Do you have any dermals or body piercing's? No Do you wear an insulin pump or CGM? No Are you currently or breast feeding? No RUBINA Horvath documented in this encounter Plan of Treatment Upcoming Encounters Date Type Department Care Team (Late st Contact Info) Description 10/05/2023 1:00 PM EST [address]ment [address], [address] [facility] [place] [id number] 10/05/2023 2:30 PM EST Appointment Vascular Lab, [address] [place] [address] Health Maintenance Due Date Last Done Comments Lipid Panel 1965 Depression Screening 1977 HIV Screening 1980 Hepatitis C Screening 1983 DTaP,Tdap,and Td Vaccines (1 - Tdap) 1984 Hepatitis B (1 of 3 - 19+ 3-dose series) 1984 Cologuard 2010 Colonoscopy 2010 Colorectal Cancer Screening 2010 Fecal Occult Blood Test 2010 Sigmoidoscopy 2010 Zoster Vaccines (1 of 2) 2015 COVID-19 Vaccine (3 - 2022-2 4 season) 2023 05/31/2021, 05/10/2021 Influenza Vaccine (FLU shot) (#1) 2023 06/17/2010 Diabetes Screening 09/28/2026 09/29/2023, 09/29/2023 GARDASIL-HPV IMMUNIZATION SERIES Aged Out No longer eligible b ased on patient's age to complete this topic MENINGOCOCCAL (MENACTRA/MENVEO) Aged Out No longer eligible b ased on patient's age to complete this topic Pneumococcal Vaccine: Pediatrics (0 to 5 Years) and At-Risk Patients (6 to 64 Years) Aged Out No longer eligible b ased on patient's age to complete this topic documented as of this encounter Medical Devices Not on filedocumented as of this encounter Care Teams Psychiatric Security Nurse Relationship Specialty Start Date End Date Barry Latif PA-C [id number] [facility] [place] [id number] PCP - General Physician Collections Director 01/10/23 documented as of this encounter
--- OUTSIDE RECORDS SUMMARY | 2023-10-06 14:49 | External Medical Summary | Summary of Care ---
Author Name Unknown Organization [facility] Address [address] [place] [address] Phone [phone] Care Team Providers Care Head Up Operator Helper Name Role Phone Barry Latif PA-C Primary Care Provid er Reason for Referral * Evaluate & Treat - Unlimited Visits (Within 10 days (routine)) - Pending Review Specialty Diagnoses / Procedures Referred By Naif salazar Referred To Contact Nephrology Diagnoses HTN (hypertension) Cherrie Birmingham MD [address] [place] [address] Referral ID Status Reason Start Date Expiration Date Visits Requested Visits Authorized [id number] Pending Review Specialty Services Required 09/29/2023 [id number] Question Answer Referral Priority Within 10 days (routine) Where should this appointment be scheduled? [facility] Comments Discharge Order Reason for Visit * Reason Comments Hypertension * Auth/Cert Specialty Diagnoses / Procedures Referred By Naif salazar Referred To Contact [facility] [address] [place] [address] Phone: [phone] Emergency Medicine [facility] [address] [place] [address] Referral ID Status Reason Start Date Expiration Date Visits Re quested Visits Authorized [id number] Encounter Details Date Type Department Care Team ([facility] st Contact Info) Description 09/29/2023 4:20 PM EST - 09/29/2023 7:09 PM EST Emergency [facility] Emergency Department ([facility]) [address] [place] [address] Cherrie Birmingham MD [address] [place], [place] [address] [id number] HTN (hypertension) Discharge Disposition: Home - Self Care Allergies No known active allergiesdocumented as of this encounter (statuses as of 09/30/2023) Medications Medication Sig Dispensed Refills Start Date [...] as of this encounter (statuses as of 09/30/2023) Active Problems No known active problems documented as of this encounter (statuses as of 09/30/2023) Social History Tobacco Use Types Packs/Day Years [...] on file documented as of this encounter Last Filed Vital Signs Vital Sign Reading Time Taken Comments Blood Pressure 161/104 09/29/2023 6:05 PM EST Pulse 71 09/29/2023 6:30 PM EST Temperature 36.1 C (97 F) 09/29/2023 2:55 PM EST Respiratory Rate 16 09/29/2023 6:30 PM EST Oxygen Saturation 99% 09/29/2023 2:55 PM EST Inhaled Oxygen Concentration - - Weight 92.1 kg (203 lb) 09/29/2023 2:55 PM EST Height 180.3 cm (5' 11") 09/29/2023 2:55 PM EST Body Mass Index 28.31 09/29/2023 2:55 PM EST documented in this encounter Discharge Instructions * Discharge Instructions* Cherrie Birmingham MD - 09/29/2023 6:58 PM EST Also continue losartan as prescribed documented in this encounter ED Notes * Cherrie Birmingham MD - 09/29/2023 4:57 PM ESTAssociated Order(s): ECG Interpret HISTORY OF PRESENT ILLNESS Nitish Major is a 58 year old male who presents to the ED for evaluation of Hypertension. The patient was seen at 09/29/23 1638--in restroom giving urine sample. History and exam obtained at 16:49. His blood pressure is "gracy high. " He has pressure behind his eyes. He feels foggy, nervous, has blurred vision, for 2 days. He does have a lot of stressors ongoing. He is not able to calm down. He takes his losartan every day. No medication changes. Numbness and tingling in his feet due to diabetes. Occasional headaches. Slight sore throat. Christian at bedside Review of Systems Constitutional: Negative for fever. HENT: Positive for sore throat. Negative for congestion, ear pain and rhinorrhea. Eyes: Positive for visual disturbance. Respiratory: Negative for cough and shortness of breath. Cardiovascular: Negative for chest pain and leg swelling. Gastrointestinal: Positive for diarrhea (Due to metformin). Negative for abdominal pain, constipation, nausea and vomiting. Genitourinary: Negative for dysuria, frequency and hematuria. Musculoskeletal: Negative for back pain and myalgias. Skin: Negative for rash. Neurological: Positive for numbness and headaches. Negative for dizziness, weakness and light-headedness. Psychiatric/Behavioral: Positive for confusion. The patient is nervous/anxious. All other systems reviewed and are negative. The patient's allergies, past history, and medications were reviewed. PHYSICAL EXAM Initial Vitals (see all): BP 190/114 | Pulse 81 | Resp 20 | Temp 97 | O2 99 %Weight 92.08 kg | Height 180.3 cm | BMI 28.31 kg/m2 Initial Pain Assessment (see all): 0 (no pain)/10 ([facility] Adult Scale 0-10) Physical Exam Vitals and nursing note reviewed. Constitutional: General: He is in acute distress (Mild to moderate). Appearance: He is not ill-appearing, toxic-appearing or diaphoretic. HENT: Head: Normocephalic and atraumatic. Eyes: Extraocular Movements: Extraocular movements intact. Pupils: Pupils are equal, round, and reactive to light. Neck: Thyroid: No thyromegaly. Trachea: No tracheal deviation. Cardiovascular: Rate and Rhythm: Normal rate and regular rhythm. Pulses: Radial pulses are 2+ on the right side and 2+ on the left side. Dorsalis pedis pulses are 2+ on the right side and 2+ on the left side. Heart sounds: No murmur heard. No gallop. Pulmonary: Effort: Pulmonary effort is normal. No respiratory distress. Breath sounds: Normal breath sounds. Abdominal: General: Bowel sounds are normal. There is no distension. Palpations: Abdomen is soft. Tenderness: There is no abdominal tenderness. There is no guarding or rebound. Musculoskeletal: General: No swelling, tenderness or deformity. Normal range of motion. Cervical back: Normal range of motion and neck supple. No muscular tenderness. Right lower leg: No edema. Left lower leg: No edema. Lymphadenopathy: Cervical: No cervical adenopathy. Skin: General: Skin is warm and dry. Coloration: Skin is not cyanotic. Findings: No rash. Nails: There is no clubbing. Neurological: General: No focal deficit present. Mental Status: He is alert and oriented to person, place, and time. GCS: GCS eye subscore is 4. GCS verbal subscore is 5. GCS motor subscore is 6. Cranial Nerves: Cranial nerves 2-12 are intact. Motor: Motor function is intact. Psychiatric: Mood and Affect: Mood normal. Speech: Speech normal. Behavior: Behavior normal. Behavior is cooperative. PROCEDURES AND TREATMENTS ED Orders | ED Results ECG Interpret Date/Time: 09/29/2023 5:00 PM Performed by: Cherrie Birmingham MD Authorized by: Cherrie Birmingham MD Previous ECG: Previous ECG: Compared to current Comments: Done at 14:58 shows normal sinus rhythm, rate 73, normal axis. There has no prior EKG available in this EMR for comparison MEDICAL DECISION MAKING Nursing notes and vital signs were reviewed. ED Course as of 09/29/23 2200 [place] Sep 29, 2023 1700 BP: 183/107 [DH] 1724 No proteinuria [DH] 1725 Normal creatinine [] 1814 Consult: Sent secure Sullivan text to nephrology Dr. Reyes. He recommends addition of Coreg 12.5 mg twice daily and agrees with outpatient nephrology referral [] 1826 Reassessment: Patient has remained stable. Results and disposition plan discussed with patientand family, recommendations of Nephrology discussed with patient and family [DH] ED Course User Index [] Cherrie Birmingham MD Differential Diagnoses Based on my history, physical exam, and evaluation, the differential includes, but is not limited, to the following diagnoses: Stress reaction, uncontrolled hypertension, doubt hypertensive emergency, doubt intracranial bleed. Viral syndrome, doubt meningitis. Amount and/or Complexity of Data Reviewed Labs: ordered. Radiology: ordered. ECG/medicine tests: independent interpretation performed. Risk Prescription drug management. Clinical Impressions HTN (hypertension) Disposition Discharged. The patient's condition at disposition was: stable. Discharge Medications Disp Refills Start End Carvedilol 12.5 MG Oral Tablet (Coreg) 60 Tablet 0 09/29/2023 -- Sig - Route: Take 0.5 Tablets by mouth in the morning and 0.5 Tablets before bedtime. - Oral Class: ePrescribing Renewals Renewal requests to authorizing provider (Cherrie Birmingham MD) <b>prohibited</b> Cherrie Birmingham This chart was completed in part utilizing [employer] Speech Voice Recognition Software. Grammatical errors, random word insertions, prounoun errors, and incomplete sentences are an occasional consequence of this system due to software limitations, ambient noise, and hardware issues. Any formal questions or concerns about the content, text, or information contained within the body of this dictation should be directly addressed to the provider for clarification. Cherrie Birmingham MD 09/29/2023 10:01 PM * Belle Hopson RN - 09/29/2023 2:57 PM EST Pt arrives to the ED complaining of HTN, hyperglycemia. Pt stated he was at his PCP and they got his BSBS and was reading high and blood pressure was elevated. Denies any chest pain, SOB. BSBS 144. BP has been elevated for several days and is why he went to his PCP. Has been taking his medications as prescribed. Denies any recent changes. +AGUILERA, mild blurry vision. documented in this encounter Miscellaneous Notes * ED Social Media Designer Note - Christian Newberry RN - 09/29/2023 7:08 PM EST Pt verbalized understanding of d/c instructions. VSS. Aware of script sent to the pharmacy. Aware of referral sent. Pt ambulated out of the ED with a steady gait. * Pt Handout (on AVS) - Cherrie Birmingham MD - 09/29/2023 6:58 PM EST Images from the original note were not included. [id number] Uncontrolled High Blood Pressure (Established) Your blood pressure was unusually high today. Your blood pressure may be high for several reasons. For example, this can occur if you?ve missed doses of your blood pressure medicine. Or it can happenif you are taking other medicines such as some asthma inhalers, decongestants, diet pills, and illegal drugs like cocaine and amphetamine. Other causes of high blood pressure include: Weight gain Too much salt in your diet Smoking Caffeine Lack of exercise Intense pain Becoming upset?this means you feel fear, anger, or another strong emotion Blood pressure measurements are given as two numbers. Systolic blood pressure is the upper number. This is the pressure when the heart contracts. Diastolic blood pressure is the lower number. This isthe pressure when the heart relaxes between beats. You will see your blood pressure readings written together. For example, a person with a systolic pressure of 118 and a diastolic pressure of 78 will have 118/78 written in the medical record. To be diagnosed with high blood pressure, your numbers must be higher than the normal range when tested over a period of time. Blood pressure is categorized as normal, elevated, or stage 1 or stage 2 high blood pressure: Normal blood pressure is systolic of less than 120 and diastolic of less than 80 (120/80) Elevated blood pressure is systolic of 120 to 129 and diastolic less than 80 Stage 1 high blood pressure is systolic of 130 to 139 or diastolic between 80 to 89 Stage 2 high blood pressure is when systolic is 140 or higher or the diastolic is 90 or higher Uncontrolled high blood pressure can cause serious health problems. It raises your risk for heart attack, stroke, as well as both kidney and heart failure. But you can do many things to manage your blood pressure. In general, if you have high blood pressure, keeping your blood pressure below 130/80mmHg may help prevent these problems. Your healthcare provider may prescribe medicine to help control blood pressure if lifestyle changes are not enough. Home care It?s important to take steps to lower your blood pressure. If you are taking blood pressure medicine, the guidelines below may help you need less or no medicines in the future. Start a weight-loss program if you are overweight. Cut back on the amount of salt in your diet: o Don't have high-salt foods such as olives, pickles, smoked meats, canned soups, deli meats, or salted potato chips. o Don?t add salt to your food at the table. o Use only small amounts of salt when cooking. Start an exercise program. Talk with your healthcare provider about what exercise program is best for you. It doesn?t have to be difficult. Even brisk walking for 20 minutes 3 times a week is a good form of exercise. Don't use medicines that stimulate the heart. This includes many pnlj-bsa-loxnxhd cold and sinusdecongestant pills and sprays, as well as diet pills. Check the warnings about high blood pressure on the label. Before purchasing any ainz-yyi-botbwqb medicines or supplements, always ask the pharmac ist about the product's potential interaction with your high blood pressure and your medicines. Stimulants such as amphetamine or cocaine could be lethal for someone with high blood pressure, as well as those on certain blood pressure medicines. Never take these. Limit how much caffeine you drink. Consider switching to noncaffeinated beverages. Stop smoking. If you are a long-time smoker, this can be hard. Enroll in a stop-smoking program to make it more likely that you will succeed. Talk with your provider about ways to quit. Learn how to handle stress better. This is an important part of any program to lower blood pressure. Learn ways to relax. These include meditation, yoga, and biofeedback. If medicines were prescribed, take them exactly as directed. Missing doses may cause your blood pressure to get out of control. Don't stop taking your medicines, even if you feel better or you feel like you don't need them anymore. Talk with your healthcare provider. If you miss a dose or doses of your medicines, check with your healthcare provider or pharmacistabout what to do. Consider buying an automatic blood pressure machine. Your provider may advise a certain type. These are available at most pharmacies. It's ideal to measure your blood pressure twice a day, once inthe morning, and once in the late afternoon. Try to be consistent. Check your blood pressure aroundthe same time each day for a good comparison. Keep a written record of your home blood pressure readings and take the record to your medical appointments. Here are some other guidelines on home blood pressure monitoring from the [place] [employer]. Don't smoke or drink coffee for 30 minutes before measuring your blood pressure. Go to the bathroom before the test. Relax for 5 minutes before taking the measurement. Sit correctly. Be sure your back is supported. Don't sit on a couch or soft chair. Uncross your feet and place them flat on the floor. Place your arm on a solid, flat surface like a table with theupper arm at heart level. Make certain the middle of the cuff is directly above the bend of the elbow. Check the monitor's instruction manual for an illustration. Take multiple readings. When you measure, take 2 or 3 readings 1 minute apart and record all of the results. Take your blood pressure at the same time every day, or as your healthcare provider recommends. Record the date, time, and blood pressure reading. Take the record with you to your next appointment. If your blood pressure monitor has a built-inmemory, simply take the monitor with you to your next appointment. Call your provider if you have several high readings. Don't be frightened by a single high reading, but if you get several high readings, check in with your healthcare provider. Note: When blood pressure reaches a systolic (top number) of 180 or higher or a diastolic (bottom number) of 110 or higher, you need emergency medical treatment. Call your healthcare provider right away. Follow-up care Regular visits to your own healthcare provider for blood pressure and medicine checks are an important part of your care. Make a follow-up appointment as directed. Bring the record of your home bloodpressure readings to the appointment. When to seek medical advice Call your healthcare provider right away if any of these occur: Blood pressure reaches a systolic (top number) of 180 or higher or diastolic (bottom number) of 110 or higher-- emergency medical treatment is required Throbbing or rushing sound in the ears Nosebleed that comes back or doesn't go away Dizziness or dizziness with spinning sensation (vertigo) Call 911 Call 911 if any of these occur: Chest, arm, shoulder, neck, or upper back pain Shortness of breath Severe headache Extreme drowsiness, confusion, or fainting Weakness, tingling, or numbness of your face, arms, or legs (especially on one side of the body) Trouble speaking or seeing Last Reviewed Date: 12/30/202119996513-1910 [employer]. All rights reserved. This information is not intended as a substitute for professional medical care. Always follow your healthcare professional's instructions. documented in this encounter Plan of Treatment Scheduled Referrals Name Type Priority Associated Diagnoses Order Schedule HYPERTENSION NEPHROLOGY REFERRAL OP Referral Within 10 days (routine) HTN (hypertension) Ordered: 09/29/2023 Health Maintenance Due Date Last Done Comments Lipid Panel 1965 Depression Screening 1977 HIV Screening 1980 Hepatitis C Screening 1983 DTaP,Tdap,and Td Vaccines (1 - Tdap) 1984 Hepatitis B (1 of 3 - 19+ 3-dose series) 1984 Cologuard 2010 Colonoscopy 2010 Colorectal Cancer Screening 2010 Fecal Occult Blood Test 2010 Sigmoidoscopy 2010 Zoster Vaccines (1 of 2) 2015 COVID-19 Vaccine (3 2022-2 4 season) 2023 05/31/2021, 05/10/2021 Influenza [...] Not on filedocumented as of this encounter Procedures Procedure Name Priority Date/Time Associated Diagnosis Comments CT HEAD/BRAIN WO CONTRAST STAT 09/29/2023 5:52 PM EST US RENAL STAT 09/29/2023 5:40 PM EST INFLUENZA A/B RSV SARS-COV2,PCR Routine 09/29/2023 5:07 PM EST ECG INTERPRET Routine 09/29/2023 5:00 PM EST URINALYSIS, REFLEX TO CULTURE STAT 09/29/2023 4:43 PM EST URINALYSIS, REFLEX TO CULTURE (CUP ONLY) STAT 09/29/2023 4:43 PM EST URINALYSIS, REFLEX TO CULTURE (NOT FOR NEUTROPENIC PATIENTS) STAT 09/29/2023 4:43 PM EST ALBUMIN / CREATININE RATIO, URINE Add-on 09/29/2023 4:43 PM EST DIFFERENTIAL, AUTOMATED STAT 09/29/2023 3:04 PM EST COMPREHENSIVE METABOLIC PANEL STAT 09/29/2023 3:04 PM EST CBC STAT 09/29/2023 3:04 PM EST CBC STAT 09/29/2023 3:04 PM EST GLUCOSE METER, POINT OF CARE NORMAN 09/29/2023 2:56 PM EST documented in this encounter Results * CT HEAD/BRAIN WO CONTRAST (09/29/2023 5:52 PM EST) Anatomical Region Laterality Modality Head Computed Tomogra phy 09/29/2023 5:45 PM EST Impressions 09/29/2023 6:07 PM EST IMPRESSION: No acute intracranial abnormality. THIS DOCUMENT HAS BEEN ELECTRONICALLY SIGNED BY ROSEMARIE SALAS MD Narrative 09/29/2023 6:07 PM EST PROCEDURE INFORMATION: Exam: CT Head Without Contrast Exam date and time: 09/29/2023 5:45 PM Age: 58 years old Clinical indication: Pain; Headache; Additional info: Headache; Bleeding risk; New or worsening AGUILERA; Not currently taking an anticoagulant TECHNIQUE: Imaging protocol: Computed tomography of the head without contrast. Radiation optimization: All CT scans at this facility use at least one of these dose optimization techniques: automated exposure control; mA and/or kV adjustment per patient size (includes targeted exams where dose is matched to clinical indication); or iterative reconstruction. COMPARISON: No relevant prior studies available. FINDINGS: Brain: Normal. No hemorrhage. Unremarkable white matter. No mass effect. Cerebral ventricles: No ventriculomegaly. Paranasal sinuses: Visualized sinuses are unremarkable. No fluid levels. Mastoid air cells: Visualized mastoid air cells are well aerated. Bones/joints: Unremarkable. No acute fracture. Soft tissues: Unremarkable. Procedure Note Rosemarie Salas MD - 09/29/2023 PROCEDURE INFORMATION: Exam: CT Head Without Contrast Exam date and time: 09/29/2023 5:45 PM Age: 58 years old Clinical indication: Pain; Headache; Additional info: Headache; Bleedingrisk; New or worsening AGUILERA; Not currently taking an anticoagulant TECHNIQUE: Imaging protocol: Computed tomography of the head without contrast. Radiation optimization: All CT scans at this facility use at least one ofthese dose optimization techniques: automated exposure control; mA and/or kV adjustment per patient size (includes targeted exams where dose is matchedto clinical indication); or iterative reconstruction. COMPARISON: No relevant prior studies available. FINDINGS: Brain: Normal. No hemorrhage. Unremarkable white matter. No mass effect. Cerebral ventricles: No ventriculomegaly. Paranasal sinuses: Visualized sinuses are unremarkable. No fluid levels. Mastoid air cells: Visualized mastoid air cells are well aerated. Bones/joints: Unremarkable. No acute fracture. Soft tissues: Unremarkable. IMPRESSION IMPRESSION: No acute intracranial abnormality. THIS DOCUMENT HAS BEEN ELECTRONICALLY SIGNED BY ROSEMARIE SALAS MD Cherrie Birmingham MD RAD CT * US RENAL (09/29/2023 5:40 PM EST) Anatomical Region Laterality Modality Abdomen, Body Ultrasound 09/29/2023 5:15 PM EST Impressions 09/29/2023 6:07 PM EST IMPRESSION: Unremarkable kidneys and bladder. THIS DOCUMENT HAS BEEN ELECTRONICALLY SIGNED BY ROSEMARIE SALAS MD Narrative 09/29/2023 6:07 PM EST PROCEDURE INFORMATION: Exam: US Retroperitoneal; Complete; Kidneys and Bladder Exam date and time: 09/29/2023 5:15 PM Age: 58 years old Clinical indication: Condition or disease; Other: HTN; Additional info: Elevated blood pressure. On medication for hypertension TECHNIQUE: Imaging protocol: Real-time ultrasound of the retroperitoneum with image documentation. Complete exam focused on the kidneys and bladder. COMPARISON: No relevant prior studies available. FINDINGS: Right kidney: Normal. No stones. No hydronephrosis. Left kidney: Normal. No stones. No hydronephrosis. Urinary bladder: Unremarkable. No bladder wall thickening. Procedure Note Rosemarie Salas MD - 09/29/2023 PROCEDURE INFORMATION: Exam: US Retroperitoneal; Complete; Kidneys and Bladder Exam date and time: 09/29/2023 5:15 PM Age: 58 years old Clinical indication: Condition or disease; Other: HTN; Additional info: Elevated blood pressure. On medication for hypertension TECHNIQUE: Imaging protocol: Real-time ultrasound of the retroperitoneum with image documentation. Complete exam focused on the kidneys and bladder. COMPARISON: No relevant prior studies available. FINDINGS: Right kidney: Normal. No stones. No hydronephrosis. Left kidney: Normal. No stones. No hydronephrosis. Urinary bladder: Unremarkable. No bladder wall thickening. IMPRESSION IMPRESSION: Unremarkable kidneys and bladder. THIS DOCUMENT HAS BEEN ELECTRONICALLY SIGNED BY ROSEMARIE SALAS MD Cherrie Birmingham MD RAD ULTRASOUND * INFLUENZA A/B RSV SARS-COV2,PCR (09/29/2023 5:07 PM EST) SARS-CoV-2 (COVID-19) Result Negative Negative 09/29/2023 6:11 PM EST LABORATORY [facility] Comment: No SARS-CoV2 Coronavirus RNA detected by PCR (amplified probe). This express test was developed and its performance characteristics determined by [facility]. It has not been cleared or approved by the U.S. Food and Drug Administration (FDA). FDA does not require this test to go thru premarket FDA review. This test is used for clinical purposes. It should not be regarded as investigational or for research. This laboratory is certified under the Clinical Laboratory Improvement Amendments (CLIA) as qualified to perform high complexity clinical laboratory testing. This test is a nucleic acid amplification test (NAAT), a reverse transcriptase polymerase chain reaction (RT-PCR) test, or a Centers for Disease Control- acceptable equivalent. The test is performed in a high complexity Clinical Laboratory Improvement Amendments-(CLIA) certified laboratory. The test is acceptable for SARS-CoV-2 diagnosis, surveillance, and travel within the [place] and to most countries. Please check with local testing authorities about requirements before travel. The validation of bronchial specimens, tracheal aspirates, and sputum for this assay was developed and performance characteristics determined by [facility]. The validation of alternate specimen types has not been cleared or approved by the U.S. Food and Drug Administration (FDA). It has been determined that such clearance is not necessary. Influenza A PCR Result Negative Negative 09/29/2023 6:11 PM EST LABORATORY [facility] Comment:No Influenza A RNA d etected by PCR (amplified probe) Influenza B PCR Result Negative Negative 09/29/2023 6:11 PM EST LAB[facility]ATORY [facility] Comment:No Influenza B RNA d etected by PCR (amplified probe) RSV PCR Result Negative Negative 09/29/2023 6:11 PM EST LAB[facility]AT[facility] Comment:No Respiratory Syncy tial Virus RNA detected by PCR (amplified probe) Upper Respiratory Mid-turbinate nasal swab / Unknown Non-blood Collection / Unknown 09/29/2023 5:07 PM EST 09/29/2023 5:11 PM EST Cherrie Birmingham MD LAB MICRO - GENER AL [place] [address] * ECG Interpret (09/29/2023 5:00 PM EST) Narrative Cherrie Birmingham MD - 09/29/2023 5:00 PM EST Cherrie Birmingham MD 09/29/2023 10:01 PM ECG Interpret Date/Time: 09/29/2023 5:00 PM Performed by: Cherrie Birmingham MD Authorized by: Cherrie Birmingham MD Previous ECG: Previous ECG: Compared to current Comments: Done at 14:58 shows normal sinus rhythm, rate 73, normal axis. There has no prior EKG available in this EMR for comparison Cherrie Birmingham MD PROCEDURE REPORT * (ABNORMAL) ALBUMIN / CREATININE RATIO, URINE (09/29/2023 4:43 PM EST) Albumin, Random Urine 6.20 mg/dL 09/29/2023 5:27 PM EST LAB[facility]ATORY [facility] Creatinine, Random Urine 81 mg/dL 09/29/2023 5:27 PM EST LAB[facility]ATORY [facility] Albumin / Creatinine Ratio, Urine 77(H) <30 mg/g Creat 09/29/2023 5:27 PM EST LAB[facility] Urine Urine specimen obtained by clean catch procedure / Unknown Non-blood Collection / Unknown 09/29/2023 4:43 PM EST 09/29/2023 4:49 PM EST Narrative LAB[facility]ATORY [facility] - 09/29/2023 5:27 PM EST Normal: <30 mg/g creatinine High: 30-300 mg/g creatinine Very High: >300 mg/g creatinine Nephrotic: >2200 mg/g creatinine Cherrie Birmingham MD LAB URINE ORDERAB LES LAB[facility]AT[facility] [address] [place] [address] * (ABNORMAL) URINALYSIS, REFLEX TO CULTURE (09/29/2023 4:43 PM EST) Color, Urine Yellow Light Yellow, Yellow, Dark Yellow 09/29/2023 5:13 PM EST LABORATORY [facility] Clarity, Urine Clear Clear 09/29/2023 5:13 PM EST LABORATORY [facility] Glucose, Urine >=1000(A) Negative mg/dL 09/29/2023 5:13 PM EST LABORATORY [facility] Bilirubin, Urine Negative Negative 09/29/2023 5:13 PM EST LABORATORY [facility] Ketone, Urine Negative Negative mg/dL 09/29/2023 5:13 PM EST LABORATORY [facility] Specific [place], Urine 1.039(H) 1.003 - 1.030 09/29/2023 5:13 PM EST LABORATORY [facility] Blood, Urine Negative Negative 09/29/2023 5:13 PM EST LABORATORY [facility] pH, Urine 5.5 5.0 - 7.5 Units 09/29/2023 5:13 PM EST LAB[facility]ORY [facility] Protein, Urine Negative Negative mg/dL 09/29/2023 5:13 PM EST LABORATORY [facility] Urobilinogen, Urine 0.2 0.2, 1.0 mg/dL 09/29/2023 5:13 PM EST LAB[facility]ATORY [facility] Nitrite, Urine Negative Negative 09/29/2023 5:13 PM EST LAB[facility]ATORY [facility] Esterase, Urine Negative Negative 09/29/2023 5:13 PM EST LABORATORY [facility] RBC, Urine 0-2 0 - 2 /HPF 09/29/2023 5:13 PM EST LAB[facility] WBC, Urine 0-2 0 - 2 /HPF 09/29/2023 5:13 PM EST LABORATORY [facility] Bacteria, Urine 0-25 0 - 25 /HPF 09/29/2023 5:13 PM EST LAB[facility] Culture, Urine 09/29/2023 5:13 PM EST [facility] Comment:Culture not indicate d by urinalysis results Urine Urine specimen obtained by clean catch procedure / Unknown Non-blood Collection / Unknown 09/29/2023 4:43 PM EST 09/29/2023 4:49 PM EST Hector Salinas Inocencio [place]-C LAB URINE ORDERA BLES Performing Organization Address [facility] Co de Phone Number LABORATORY [address] [address] * URINALYSIS, REFLEX TO CULTURE (CUP ONLY) (09/29/2023 4:43 PM EST) Urinalysis, Reflex to Culture Specimen Specimen collected and received 09/29/2023 6:02 PM EST LAB[facility]ATORY [facility] Urine Urine specimen obtained by clean catch procedure / Unknown Non-blood Collection / Unknown 09/29/2023 4:43 PM EST 09/29/2023 4:49 PM EST Hector Bradlona H[place]-C LAB URINE ORDERA BLES Performing Organization Address [facility] Co de Phone Number LABORATORY [address] [address] * DIFFERENTIAL, AUTOMATED (09/29/2023 3:04 PM EST) WBC 8.73 4.00 - 10.80 K/uL 09/29/2023 3:13 PM EST LABORATORY [facility] Neutrophils % 56.3 40.0 - 75.0 % 09/29/2023 3:13 PM EST LAB[facility]ATORY [facility] Lymphocytes % 31.0 18.0 - 42.0 % 09/29/2023 3:13 PM EST LAB[facility]ATORY [facility] Monocytes % 9.7 1.0 - 11.0 % 09/29/2023 3:13 PM EST LAB[facility]ATORY [facility] Eosinophils % 2.3 0.0 - 6.0 % 09/29/2023 3:13 PM EST LAB[facility]ATORY [facility] Basophils % 0.5 0.0 - 2.0 % 09/29/2023 3:13 PM EST LAB[facility]ATORY [facility] Immature Granulocytes % 0.2 0.0 - 2.0 % 09/29/2023 3:13 PM EST LAB[facility]ATORY [facility] Absolute Neutrophils 4.91 1.80 - 7.70 K/uL 09/29/2023 3:13 PM EST LAB[facility]ATORY [facility] Absolute Lymphocytes 2.71 1.00 - 4.80 K/ul 09/29/2023 3:13 PM EST LAB[facility]ATORY [facility] Absolute Monocytes 0.85 0.00 - 1.10 K/uL 09/29/2023 3:13 PM EST LAB[facility]ATORY [facility] Absolute Eosinophils 0.20 0.00 - 0.70 K/uL 09/29/2023 3:13 PM EST LAB[facility]ATORY [facility] Absolute Basophils 0.04 0.00 - 0.20 K/uL 09/29/2023 3:13 PM EST LAB[facility]ATORY [facility] Absolute Immature Granulocytes 0.02 0.00 - 0.20 K/uL 09/29/2023 3:13 PM EST LAB[facility]ATORY [facility] Blood Venous blood specimen / Unknown Venipuncture / Unknown 09/29/2023 3:04 PM EST 09/29/2023 3:08 PM EST Hector Painter PA-C LAB BLOOD ORDERA BLES LAB[facility]ATORY [facility] [address] [place] [address] * CBC (09/29/2023 3:04 PM EST) WBC 8.73 4.00 - 10.80 K/uL 09/29/2023 3:13 PM EST LABORATORY [facility] RBC 5.07 4.50 - 5.25 M/uL 09/29/2023 3:13 PM EST LAB[facility]ATORY [facility] HGB 14.7 14.0 - 16.8 g/dL 09/29/2023 3:13 PM EST LAB[facility]ATORY [facility] HCT 43.5 40.0 - 48.4 % 09/29/2023 3:13 PM EST LABORATORY [facility] MCV 85.8 82.0 - 99.5 fL 09/29/2023 3:13 PM EST LAB[facility]ATORY [facility] MCH 29.0 27.0 - 34.0 pg 09/29/2023 3:13 PM EST LABORATORY GL MCHC 33.8 32.0 - 36.0 g/dL 09/29/2023 3:13 PM EST LABORATORY GL RDW 12.3 11.5 - 15.5 % 09/29/2023 3:13 PM EST LABORATORY [facility] PLT 250 140 - 400 K/uL 09/29/2023 3:13 PM EST LAB[facility]ATORY [facility] MPV 8.8 6.6 - 11.1 fL 09/29/2023 3:13 PM EST LAB[facility]ATORY [facility] nRBCs 0 <=0 /100 WBCs 09/29/2023 3:13 PM EST LAB[facility]ATORY [facility] Blood Venous blood specimen / Unknown Venipuncture / Unknown 09/29/2023 3:04 PM EST 09/29/2023 3:08 PM EST Hector Painter PA-C LAB BLOOD ORDERA BLES LABORATORY [facility] [address] [place] [address] * (ABNORMAL) COMPREHENSIVE METABOLIC PANEL (09/29/2023 3:04 PM EST) BUN 22(H) 6 - 20 mg/dL 09/29/2023 3:27 PM EST LABORATORY [facility] Creatinine 0.9 0.6 - 1.2 mg/dL 09/29/2023 3:27 PM EST LAB[facility]ATORY [facility] Estimated Glomerular Filtration Rate >90 >=60 mL/min 09/29/2023 3:27 PM EST LAB[facility]ATORY [facility] Comment:eGFR is calculated b ased on the CKD-EPI 2020 equation Sodium 137 135 - 146 mmol/L 09/29/2023 3:27 PM EST LAB[facility]ATORY [facility] Potassium 4.2 3.5 - 5.1 mmol/L 09/29/2023 3:27 PM EST LAB[facility]ATORY [facility] Chloride 101 98 - 107 mmol/L 09/29/2023 3:27 PM EST LAB[facility]ATORY [facility] CO2 27 22 - 32 mmol/L 09/29/2023 3:27 PM EST LAB[facility]ATORY [facility] Anion Gap 9 7 - 15 mmol/L 09/29/2023 3:27 PM EST LAB[facility]ATORY [facility] Glucose 159(H) 70 - 120 mg/dL 09/29/2023 3:27 PM EST LAB[facility]ATORY [facility] Albumin 4.1 3.8 - 5.0 g/dL 09/29/2023 3:27 PM EST LAB[facility]ATORY [facility] AST 11 10 - 50 U/L 09/29/2023 3:27 PM EST LAB[facility]ATORY [facility] Alkaline Phosphatase 42 35 - 130 U/L 09/29/2023 3:27 PM EST LAB[facility]ATORY [facility] Bilirubin, Total 0.7 <=1.2 mg/dL 09/29/2023 3:27 PM EST LAB[facility]ATORY [facility] Calcium 9.5 8.4 - 10.2 mg/dL 09/29/2023 3:27 PM EST LAB[facility]ATORY [facility] Protein 7.3 6.0 - 8.3 g/dL 09/29/2023 3:27 PM EST LAB[facility]ATORY [facility] ALT 12 10 - 50 U/L 09/29/2023 3:27 PM EST LAB[facility]ATORY [facility] Blood Venous blood specimen / Unknown Venipuncture / Unknown 09/29/2023 3:04 PM EST 09/29/2023 3:08 PM EST Hector Painter PA-C LAB BLOOD ORDERA BLES Performing Organization Address [facility] Co de Phone Number LABORATORY [facility] [address] [place] [address] * (ABNORMAL) GLUCOSE METER, POINT OF CARE (09/29/2023 2:56 PM EST) [facility] Glucose Meter 144(H) 70 - 120 mg/dL 09/29/2023 2:58 PM EST [facility] Blood Whole blood specimen / Unknown 09/29/2023 2:56 PM EST 09/29/2023 2:58 PM EST No Physician Data Unknown LAB POINT OF C ARE TEST DOCKED DEVICE UNSOLICITED RESULTS Performing Organization Address [facility] Co de Phone Number [facility] [address] [place] [address] documented in this encounter Visit Diagnoses Diagnosis HTN (hypertension) Unspecified essential hypertension documented in this encounter Administered Medications Inactive Administered Medications - up to 3 most recent administrations Medication Order MAR Action Action Date Dose Rate Site Carvedilol (Coreg) tab 12.5 mg 12.5 mg, Oral, ONCE, On Yamila 09/29/23 at 1930, For 1 dose, Hold for HR less than 60 or SBP below 100 and notify service if dose is held MUST BE GIVEN WITH MEAL Given 09/29/2023 7:05 PM EST 12.5 mg documented in this encounter Active and Recently Administered Medications Times are shown in EST. Scheduled Medication Order 09/27/2023 09/28/2023 09/29/2023 Carvedilol (Coreg) tab 12.5 mg (COMPLETED) 12.5 mg, Oral, ONCE, On Yamila 09/29/23 at 1930, For 1 dose, Hold for HR less than 60 or SBP below 100 and notify service if dose is held MUST BE GIVEN WITH MEAL 1905 (Given - Provid er: Christian Newberry RN) documented in this encounter Additional Health Concerns Infection Onset Date Last Indicated Resolved Time Respiratory Rule-Out 09/29/2023 09/29/2023 024 6:11 PM EST COVID-19 Rule-Out 09/29/2023 09/29/2023 09/29/2023 6:11 PM EST documented as of this encounter Care Teams Head Up Operator Helper Relationship Specialty Start Date End Date Barry Latif PA-C [address] [place] [address] [place] [address] PCP - General Physician Felting Machine Operator 01/10/23 documented as of this encounter
--- OUTSIDE RECORDS SUMMARY | 2023-10-06 14:49 | External Medical Summary ---
Author Name Unknown Address Unknown Organization K1F:LABORATORY [address] [place] [address] Laboratory Report Ordering Provider Test Date Status SIGRID SINGH 09/29/2023 17:07:16 Final DISCHARGED patient Observation Date Value Abnormality Reference (Units ) Status SARS Coronavirus 2 09/29/2023 17:07:16 Negative N egative Final No SARS-CoV2 Coronavirus RNA detected by PCR (amplified probe).
This express test was developed and its performance characteristics determined by [facility] [employer] [facility]. It has not been cleared or approved [...] (RT-PCR) test, or a Centers for Disease Control-acceptable equivalent. The test is performed in a high complexity Clinical Laboratory Improvement Amendments-(CLIA) certified laboratory. The test is acceptable for SARS-CoV-2 diagnosis, surveillance, and travel within the [place] and to most countries. Please check with local testing authorities about requirements before travel.

The validation of bronchial specimens, tracheal aspirates, and sputum for this assay was developed and performance characteristics determined by [facility] [employer] [facility]. The validation of alternate specimen types has not been cleared or approved by the U.S. Food and Drug Administration (FDA). It has been determined that such clearance is not necessary. Influenza virus A RNA [Prese nce] in Specimen by HARSHAL with probe detection 09/29/2023 17:07:16 Negative Negative Final No Influenza A RNA detected by PCR (amplified probe) Influenza virus B RNA [Prese nce] in Specimen by HARSHAL with probe detection 09/29/2023 17:07:16 Negative Negative Final No Influenza B RNA detected by PCR (amplified probe) Respiratory syncytial virus RNA [Identifier] in Specimen by HARSHAL with probe detection 09/29/2023 17:07:16 Negative Negative Final No Respiratory Syncytial Vir us RNA detected by PCR (amplified probe) Performing Location LABORATORY [address] [place] [address]
--- OUTSIDE RECORDS SUMMARY | 2023-10-06 14:49 | External Medical Summary | Summary of Care ---
Author Name Unknown Organization [facility] Address [address] [place] [address] Phone [phone] Care Team Providers Care Equity Analyst Name Role Phone Barry Latif PA-C Primary Care Provid er Reason for Referral * Precert (Within 24 hrs (call dept; emergent)) - Authorized Specialty Diagnoses / Procedures Referred By Contaishwarya t Referred To Contact Radiology Diagnoses Essential (primary) hypertension Irritability and anger Other visual disturbances Procedures MRI BRAIN W WO CONTRAST Di Palomares CRNP [address] [place] [address] Referral ID Status Reason Start Date Expiration Date V isits Requested Visits Authorized [id number] Authorized 10/04/2023 04/01/2024 [id number] Encounter Details Date Type Department Care Team (Late st Contact Info) Description 10/04/2023 Orders Only Access Center, [address] Ext *DO NOT REMOVE THIS DEPARTMENT* [place] [address] Requisition, External Radiology [address] [place] [address] Essential (primary) hypertension*; Irritability and anger; Other visual disturbances Allergies No known active allergiesdocumented as of [...] on file documented as of this encounter Plan of Treatment Upcoming Encounters Date Type Department Care Team (Late st Contact Info) Description 10/05/2023 1:00 PM EST Appointment [address]iology, [address] [address] 10/05/2023 2:30 PM EST Appointment Vascular Lab, [address] [address] Scheduled Orders Name Type Priority Associated Diagnoses Orde r Schedule MRI BRAIN W WO CONTRAST Medical Imaging STAT Essential (primary) hypertension Irritability and anger Other visual disturbances Expected: 10/04/2023 (Approximate), Expires: 11/03/2024 VASC DUPLEX CAROTID BILAT Medical Imaging STAT Essential (primary) hypertension Irritability and anger Other visual disturbances Expected: 10/04/2023, Expires: 11/03/2024 Health Maintenance Due Date Last Done Comments [...] Not on filedocumented as of this encounter Visit Diagnoses Diagnosis Essential (primary) hypertension- Primary Unspecified essential hypertension Irritability and anger Irritability Other visual disturbances documented in this encounter Care Teams Equity Analyst Relationship Specialty Start Date End Date Barry Latif PA-C [address] [place] [address] [place] [address] PCP - General Physician French Pastry Cook 01/10/23 documented as of this encounter
--- OUTSIDE RECORDS SUMMARY | 2023-10-06 14:49 | External Medical Summary | Summary of Care ---
Author Name Unknown Organization [address] [address] Phone [phone] Care Team Providers Care Network Control Operator Name Role Phone Barry Latif PA-C Primary Care Provid er Reason for Visit * Reason Onset Date Comments Appointment 10/03/2023 Encounter Details Date Type Department Care Team ([facility] st Contact Info) Description 10/03/2023 Telephone Nephrology, [address] [address] Goldie Reyes MD [address] [place] [address] Appointment Allergies No known active allergiesdocumented as of this encounter (statuses as of 10/03/2023) Medications Medication Sig Dispensed Refills Start Date [...] as of this encounter (statuses as of 10/03/2023) Active Problems No known active problems documented as of this encounter (statuses as of 10/03/2023) Social History Tobacco Use Types Packs/Day Years [...] encounter Miscellaneous Notes * Telephone Encounter - Marysol Clayton OSA - 10/03/2023 8:04 AM EST 10/03/23 Called patient, left message. Trying to get patient scheduled with Nephrology for appointment. Referral is under active requests. My G not active. documented in this encounter Plan of Treatment Health Maintenance Due Date Last Done Comments [...] filedocumented as of this encounter Care Teams Network Control Operator Relationship Specialty Start Date End Date Barry Latif PA-C [address] [place] [address] [place] [address] PCP - General Physician Gauge And Instrument Inspector 01/10/23 documented as of this encounter
--- OUTSIDE RECORDS SUMMARY | 2023-10-06 14:50 | External Medical Summary ---
Author Name Unknown Address Unknown Organization K1F:LABORATORY [facility] - [address] [place] [address] Laboratory Report Ordering Provider Test Date Status SIGRID SINGH 09/29/2023 16:43:12 Final Normal: <30 mg/g creatinine< br/>High: 30-300 mg/g creatinine
Very High: >300 mg/g creatinine
Nephrotic: >2200 mg/g creatinine Observation Date Value Abnormality Reference (Units ) Status Albumin, Urine 09/29/2023 16:43:12 6.20 (mg/dL) Final Creatinine, Urine 09/29/2023 16:43:12 81 (mg/dL) Final Albumin/Creatinine [Mass Ratio] in Urine 09/29/2023 16:43:12 77 Above high normal <30 (mg/g Creat) Final Performing Location LABORATORY [facility] - [address] [place] [address]
--- OUTSIDE RECORDS SUMMARY | 2023-10-06 14:50 | External Medical Summary ---
Author Name Unknown Address Unknown Organization K1F:LABORATORY [facility] - [address] [facility] [place] [address] Laboratory Report Ordering Provider Test Date Status ABI HENRY 09/29/2023 16:43:12 Final Observation Date Value Abnormality Reference (Units ) Status Color of Urine by Auto 09/29/2023 16:43:12 Yellow Light Yellow, Yellow, Dark Yellow Final Clarity, Urine 09/29/2023 16:43:12 Clear Clear Final Glucose [Mass/volume] in Urine by Automated test strip 09/29/2023 16:43:12 >=1000 Abnormal Negative (mg/dL) Final Bilirubin.total [Presence] in Urine by Automated test strip 09/29/2023 16:43:12 Negative Negative Final Ketones [Mass/volume] in Urine by Automated test strip 09/29/2023 16:43:12 Negative Negative (mg/dL) Final Specific gravity, Urine 09/29/2023 16:43:12 1.039 Above high normal 1.003-1.030 Final Hemoglobin [Presence] in Urine by Automated test strip 09/29/2023 16:43:12 Negative Negative Final pH, Urine 09/29/2023 16:43:12 5.5 5.0-7.5 (Units) Final Protein [Mass/volume] in Urine by Automated test strip 09/29/2023 16:43:12 Negative Negative (mg/dL) Final Urobilinogen [Mass/volume] in Urine by Automated test strip 09/29/2023 16:43:12 0.2 0.2, 1.0 (mg/dL) Final Nitrite [Presence] in Urine by Automated test strip 09/29/2023 16:43:12 Negative Negative Final Leukocyte esterase [Presence] in Urine by Automated test strip 09/29/2023 16:43:12 Negative Negative Final RBC, Urine 09/29/2023 16:43:12 0-2 0-2 (/HPF) Final WBC, Urine 09/29/2023 16:43:12 0-2 0-2 (/HPF) Final Bacteria [#/area] in Urine sediment by Microscopy high power field 09/29/2023 16:43:12 0-25 0-25 (/HPF) Final CULTURE, URINE - [facility] 09/29/2023 16:43:12 Final Culture not indicated by uri nalysis results\[id number]\ Performing Location LABORATORY [address]becca Iqbal. [facility] [address]
--- OUTSIDE RECORDS SUMMARY | 2023-10-06 14:50 | External Medical Summary ---
Author Name Unknown Address Unknown Organization : Laboratory Report Ordering Provider Test Date Status NO,UNKNOWN 09/29/2023 14:56:17 Final Observation Date Value Abnormality Reference (Units ) Status Glucose Point of Care 09/29/2023 14:56:17 144 Above high normal 70-120 (mg/dL) Final Performing Location
--- OUTSIDE RECORDS SUMMARY | 2023-10-06 14:50 | External Medical Summary ---
Author Name Unknown Address Unknown Organization K1F:LABORATORY [facility] - [address] [facility] [place] [address] Laboratory Report Ordering Provider Test Date Status ABI HENRY 09/29/2023 15:04:00 Final Observation Date Value Abnormality Reference (Units ) Status SYNC LEUKOCYTES IN BLOOD BY AUTOMATED COUNT 09/29/2023 15:04:00 8.73 4.00-10.80 (K/uL) Final Segs 09/29/2023 15:04:00 56.3 40.0-75.0 (%) Final Lymphs % 09/29/2023 15:04:00 31.0 18.0-42.0 (%) Final Monos 09/29/2023 15:04:00 9.7 1.0-11.0 (%) Final Eosinophils 09/29/2023 15:04:00 2.3 0.0-6.0 (%) Final Basos 09/29/2023 15:04:00 0.5 0.0-2.0 (%) Final Immature Granulocyte, Percent 09/29/2023 15:04:00 0.2 0.0-2.0 (%) Final Absolute Segs 09/29/2023 15:04:00 4.91 1.80-7.70 (K/uL) Final Lymphs, absolute 09/29/2023 15:04:00 2.71 1.00-4.80 (K/ul) Final Monos, Abs 09/29/2023 15:04:00 0.85 0.00-1.10 (K/uL) Final Eos, Abs 09/29/2023 15:04:00 0.20 0.00-0.70 (K/uL) Final Basos, Abs 09/29/2023 15:04:00 0.04 0.00-0.20 (K/uL) Final Immature Granulocytes, Number 09/29/2023 15:04:00 0.02 0.00-0.20 (K/uL) Final Performing Location LABORATORY [facility] - [address] [facility] [place] [address]
--- OUTSIDE RECORDS SUMMARY | 2023-10-06 14:50 | External Medical Summary ---
Author Name Unknown Address Unknown Organization K1F:LABORATORY [facility] - [address] [place] [address] Laboratory Report Ordering Provider Test Date Status ABI HENRY 09/29/2023 15:04:00 Final Observation Date Value Abnormality Reference (Units ) Status WBC, Total 09/29/2023 15:04:00 8.73 4.00-10.80 (K/uL) Final RBC 09/29/2023 15:04:00 5.07 4.50-5.25 (M/uL) Final Hemoglobin 09/29/2023 15:04:00 14.7 14.0-16.8 (g/dL) Final HCT 09/29/2023 15:04:00 43.5 40.0-48.4 (%) Final MCV 09/29/2023 15:04:00 85.8 82.0-99.5 (fL) Final MCH 09/29/2023 15:04:00 29.0 27.0-34.0 (pg) Final MCHC 09/29/2023 15:04:00 33.8 32.0-36.0 (g/dL) Final RDW 09/29/2023 15:04:00 12.3 11.5-15.5 (%) Final Platelets 09/29/2023 15:04:00 250 140-400 (K/uL) Final MPV 09/29/2023 15:04:00 8.8 6.6-11.1 (fL) Final Nucleated erythrocytes/100 leukocytes [Ratio] in Blood by Automated count 09/29/2023 15:04:00 0 <=0 (/100 WBCs) Final Performing Location LABORATORY [facility] - [address] [place] [address]
--- OUTSIDE RECORDS SUMMARY | 2023-10-06 14:50 | External Medical Summary ---
Author Name Unknown Address Unknown Organization K1F:[facility]ORY [facility] [address] [facility] [place] [address] Laboratory Report Ordering Provider Test Date Status ABI HENRY 09/29/2023 15:04:00 Final Observation Date Value Abnormality Reference (Units ) Status BUN 09/29/2023 15:04:00 22 Above high normal 6-20 (mg/dL) Final Creatinine 09/29/2023 15:04:00 0.9 0.6-1.2 (mg/dL) Final Glomerular filtration rate/1.73 sq M.predicted [Volume Rate/Area] in Serum, Plasma or Blood by Creatinine-based formula (CKD-EPI) 09/29/2023 15:04:00 >90 >=60 (mL/min) Final eGFR is calculated based on the CKD-EPI 2020 equation SODIUM 09/29/2023 15:04:00 137 135-146 (m mol/L) Final Potassium 09/29/2023 15:04:00 4.2 3.5-5.1 (m mol/L) Final Cl 09/29/2023 15:04:00 101 98-107 (mm ol/L) Final CO2 09/29/2023 15:04:00 27 22-32 (mmo l/L) Final Anion gap 09/29/2023 15:04:00 9 7-15 (mmol /L) Final Glucose 09/29/2023 15:04:00 159 Above high normal 70 -120 (mg/dL) Final Albumin 09/29/2023 15:04:00 4.1 3.8-5.0 (g /dL) Final AST (Aspartate aminotransferase) 09/29/2023 15:04:00 11 10-50 (U/L) Fin al Alk Phos 09/29/2023 15:04:00 42 35-130 (U/ L) Final Bilirubin, Total 09/29/2023 15:04:00 0.7 <=1 .2 (mg/dL) Final Calcium 09/29/2023 15:04:00 9.5 8.4-10.2 ( mg/dL) Final Protein 09/29/2023 15:04:00 7.3 6.0-8.3 (g /dL) Final ALT (Alanine aminotransferase) 09/29/2023 15:04:00 12 10-50 (U/L) Kane portillo Performing Location LABORATORY [facility] - [address] [place], [place] [address]violetta Iqbal. [place] [address]
--- OUTSIDE RECORDS SUMMARY | 2023-10-06 14:50 | External Medical Summary | Summary of Care ---
Author Name Unknown Organization [facility] Address [address] [place] [address] Phone [phone] Care Team Providers Care Credit Specialist Name Role Phone Barry Latif PA-C Primary Care Provid er Reason for Visit * Reason Comments Cough Encounter Details Date Type Department Care Team (Latest Contact Info) Description 07/10/2023 5:20 PM EST [facility] [place] [address] [place] [phone] Nitish Murillo PA-C [address] [facility] [address] [place] [phone] Herpes zoster without complication*; LRTI (lower respiratory tract infection); Pneumonia of right lower lobe due to infectious organism Allergies No known active allergiesdocumented as of this encounter (statuses as of 07/10/2023) Medications Medication Sig Dispensed Refills Start Date [...] 1 Tablet before bedtime. 0 05/16/2023 Active valACYclovir HCl 1 GM Oral Tablet (Valtrex)Indications: Herpes zoster without complication Take 1 Tablet by mouth in the morning and 1 Tablet at noon and 1 Tablet before bedtime. Do all this for 7 days. For 7 days for shingles. 21 Tablet 0 07/10/2023 07/17/2023 Active Amoxicillin 875 MG Oral TabletIndications:Pne umonia of right lower lobe due to infectious organism Take 1 Tablet by mouth in the morning and 1 Tablet before bedtime. Do all this for 10 days. 20 Tablet 0 07/10/2023 07/20/2023 Active Azithromycin 250 MG Oral Tablet (Zithromax Z-Sean)Indications:Pne umonia of right lower lobe due to infectious organism Take two tablets by mouth on first day, then 1 tablet daily until gone 6 Tablet 0 07/10/2023 Active documented as of this encounter (statuses as of 07/10/2023) Active Problems No known active problems documented as of this encounter (statuses as of 07/10/2023) Social History Tobacco Use Types Packs/Day Years Used Date Smoking Tobacco: Never Smokeless Tobacco: Former Sex and Gender Information Value Date Recorded Sex Assigned at Not on file Gender Identity Not on file Sexual Orientation Not on file Job Start Date Occupation Industry Not on file Not on file Not on file documented as of this encounter Last Filed Vital Signs Vital Sign Reading Time Taken Comments Blood Pressure 162/100 07/10/2023 2:54 PM EST Pulse 85 07/10/2023 2:54 PM EST Temperature 36.8 C (98.3 F) 07/10/2023 2:54 PM ES T Respiratory Rate - - Oxygen Saturation 95% 07/10/2023 2:54 PM EST Inhaled Oxygen Concentration - - Weight 92.5 kg (204 lb) 07/10/2023 2:54 PM EST Height - - Body Mass Index - - documented in this encounter Patient Instructions * Patient Instructions* Nitish Murillo PA-C - 07/10/2023 3:34 PM EST Mild pneumonia- fluids, rest- recheck if not resolving Rash looks like shingles- contagious until blisters dry up- keep covered- be sure nobody touches it documented in this encounter Progress Notes * Nitish Murillo PA-C - 07/10/2023 3:21 PM EST Images from the original note were not included. History of Present Illness Nitish Major is a 57 year old male that presents for Cough 2 w odf chest congestion, cough- took prednisone- 5 dys of doxy- is no better- rash on l neck 1 dy-itchy- vision ok- no eye pain Cough This is a new problem. The current episode started in the past 7 days. The problem occurs constantly. The cough is Non-productive. Associated symptoms include nasal congestion, postnasal drip, rhinorrhea and wheezing. Pertinent negatives include no shortness of breath. Nothing aggravates the symptoms. Physical Exam Vitals: 07/10/23 1454 Temp: 36.8 C (98.3 F) Pulse: 85 SpO2: 95% BP: 162/100 Physical Exam Vitals and nursing note reviewed. Constitutional: Appearance: Normal appearance. HENT: Head: Normocephalic and atraumatic. Right Ear: Tympanic membrane normal. Left Ear: Tympanic membrane normal. Nose: Congestion present. Mouth/Throat: Mouth: Mucous membranes are moist. Pharynx: Oropharynx is clear. Eyes: Conjunctiva/sclera: Conjunctivae normal. Pupils: Pupils are equal, round, and reactive to light. Cardiovascular: Rate and Rhythm: Normal rate and regular rhythm. Heart sounds: Normal heart sounds. Pulmonary: Effort: Pulmonary effort is normal. Comments: Crackles L base- nl effort Lymphadenopathy: Cervical: No cervical adenopathy. Skin: Comments: L side of neck has scattered patches of erythema, vesicles Neurological: Mental Status: He is alert. Psychiatric: Mood and Affect: Mood normal. Behavior: Behavior normal. Thought Content: Thought content normal. Judgment: Judgment normal. I have reviewed the following results: XR- mild RLL infiltrate Assessment and Plan Herpes zoster without complication (Primary) - valACYclovir HCl 1 GM Oral Tablet (Valtrex); Take 1 Tablet by mouth in the morning and 1 Tablet at noon and 1 Tablet before bedtime. Do all this for 7 days. For 7 days for shingles. LRTI (lower respiratory tract infection) - XR CHEST 2 VIEWS Pneumonia of right lower lobe due to infectious organism - Amoxicillin 875 MG Oral Tablet; Take 1 Tablet by mouth in the morning and 1 Tablet before bedtime. Do all this for 10 days. - Azithromycin 250 MG Oral Tablet (Zithromax Z-Sean); Take two tablets by mouth on first day, then 1tablet daily until gone Follow Up: Return if symptoms worsen or fail to improve. Mild pneumonia- fluids, rest- recheck if not resolving Rash looks like shingles- contagious until blisters dry up- keep covered- be sure nobody touches it Wrap-Up Follow Up: Return if symptoms worsen or fail to improve. Time: I spent a total of 10-19 minutes (exact time 15 mins) on the date of service in preparation, delivery, and documentation of the care provided to Nitish Major excluding any time spent in the performance of separately billed services. documented in this encounter Nursing Notes * Lindsey Zarate LPN - 07/10/2023 2:51 PM EST Chief Complaint Patient presents with Cough Pt accompanied today with , Christian. Patient was treated with anbx and steroids for bronchial issues for which he completed yesterday. He is still having a cough. Sinus drainage, occasional chills. He used a biofreeze pack on his neck yesterday and today with a rash to the LEFT side of his neck and below the ear. documented in this encounter Miscellaneous Notes * Pt Handout (on AVS) - Nitish Murillo PA-C - 07/10/2023 3:34 PM EST Images from the original note were not included. [id number] Shingles (Herpes Zoster) Talk to your healthcare provider about the shingles vaccine. Shingles is also called herpes zoster. It's a painful skin rash caused by the herpes zoster virus. This is the same virus that causes chickenpox. After a person has chickenpox, the virus stays inactive in the nerve cells. Years later, the virus can become active again and travel along the nerve to the skin. Most people have shingles only once. But it's possible to have it more than once. Who is at risk for shingles? Anyone who has ever had chickenpox can get shingles. But your risk is greater if you: Are age 50 or older Have an illness that weakens your immune system, such as HIV/AIDS Have cancer, especially Hodgkin disease or lymphoma Take medicines that weaken your immune system What are the symptoms of shingles? The first sign of shingles is often pain, burning, tingling, or itching on one part of your faceor body. You may also feel as if you have the flu, with fever and chills. A red rash with small blisters appears in a few days. The rash may look as follows: o The blisters can occur anywhere, but they?re most common on the back, chest, or belly (abdomen). o They usually appear on only one side of the body, spreading along the nerve pathway where the virus is reactivating. o The rash can also form around an eye, along one side of the face or neck, or in the mouth. o In a few people, often those with a weak immune system, shingles appear on more than one part of the body at once. After a few days, the blisters become dry and form a crust. The crust falls off in days to weeks. The blisters generally don't leave scars. But they can in severe cases. Or if someone has a weak immune system. How is shingles treated? For most people, shingles heals on its own in a few days or weeks. But treatment is advised to helpease pain, speed healing, and reduce the risk for complications. Antiviral medicines are most oftenonly prescribed if you are seen by a healthcare provider within the first 72 hours of having the rash. But antiviral medicines may be prescribed even after 72 hours if your immune system is weak. Or if the infection is extensive, severe, or isn't going away. To reduce symptoms: Apply ice packs or cool compresses, or soak in a cool bath. To make an ice pack, use a bag of frozen vegetables or put ice cubes in a plastic bag that seals at the top. Wrap the bag in a clean, thin towel or cloth. Never put ice or an ice pack directly on the skin. Use calamine lotion to calm itchy skin. Ask your provider about yhax-qjo-qtlludn pain relievers. If your pain is severe, your provider may prescribe stronger pain medicines. What are possible complications of shingles? Shingles often goes away with no lasting effects. But some people have complications during or after the infection comes out: Postherpetic neuralgia. This is the most common complication. It's more likely as people age, especially after age 60. It's nerve pain at the place where the rash used to be. It can range from mild to severe. It can last for only a few days. Or it can last for months or even years after you havehad shingles. Antiviral medicines given during the first 72 hours of the rash can reduce the chanceof postherpetic neuralgia. Other medicines can help ease the pain and improve quality of life. Bacterial infection. Shingles blisters may get infected with bacteria. Depending on the severityof the infection, topical, oral or IV (intravenous) antibiotic medicine is used to treat the infection. Eye problems. If you have shingles on the face, see your healthcare provider right away. Shingles can cause serious problems with vision, and even blindness. In very rare cases, shingles can also lead to pneumonia, hearing problems, brain inflammation, or even . When to get medical care Call your healthcare provider if you have any of these: New symptoms or symptoms that don?t go away with treatment A rash or blisters near your eye More drainage, fever, or rash after treatment Severe pain that doesn?t go away How can shingles be prevented? You can only get shingles if you have had chickenpox in the past. Someone who never had chickenpox can get the virus from you. But instead of have shingles, the person may get chickenpox. Until your blisters form scabs, don't have any contact with others, especially the following: women who have never had chickenpox or the vaccine Babies who were born early (premature) or who had low weight at People with weak immune systems. This includes people getting chemotherapy for cancer, people who have had organ transplants, and people with HIV infections. The risk is higher if you've never hadchickenpox. The shingles vaccine The recombinant zoster vaccine (RZV) shingles vaccine can help prevent shingles or make it less painful. You should get the RZV shingles vaccine if you are healthy and age 50 or older, even if you've had shingles in the past. Two shots of the RZV vaccine are needed. You should get the second RZV shot 2 to 6 months after the first. The vaccine makes it less likely that you will develop shingles. If youdo develop shingles, your symptoms will likely be milder than if you hadn?t been vaccinated. RZV isalso advised even if you had the older shingles vaccine (zoster live vaccine, ZVL) in the past. That's because the RZV vaccine works better and protects you from shingles longer. Talk with your healthcare provider about the best time to get vaccinated. Last Reviewed Date: 09/29/202119999796-5139 The [employer]. All rights reserved. This information is not intended as a substitute for professional medical care. Always follow your healthcare professional's instructions. documented in this encounter Plan of Treatment Pending Results Name Type Priority Associated Diagnoses Date /Time XR CHEST 2 VIEWS Medical Imaging STAT LRTI (lower respiratory tract infection) 07/10/2023 3:25 PM EST Health Maintenance Due Date Last Done Comments Hepatitis B (1 of 3 - 3-dose series) 1965 Lipid Panel 1965 COVID-19 Vaccine (#1) 03/22/1966 Depression Screening 1977 HIV Screening 1980 Hepatitis C Screening 1983 DTaP,Tdap,and Td Vaccines (1 - Tdap) 1984 Cologuard 2010 Colonoscopy 2010 Colorectal Cancer Screening 2010 Fecal Occult Blood Test 2010 Sigmoidoscopy 2010 Zoster Vaccines (1 of 2) 2015 Influenza Vaccine (FLU shot) (#1) 2023 GARDASIL-HPV IMMUNIZATION SERIES Aged Out No longer eligible based on patient's age to complete this topic MENINGOCOCCAL (MENACTRA/MENVEO) Aged Out No longer eligible based on patient's age to complete this topic Pneumococcal Vaccine: Pediat rics (0 to 5 Years) and At-Risk Patients (6 to 64 Years) Aged Out No longer eligible b ased on patient's age to complete this topic documented as of this encounter Medical Devices Not on filedocumented as of this encounter Procedures Procedure Name Priority Date/Time Associated Diagnosis Comments XR CHEST 2 VIEWS STAT 07/10/2023 3:25 PM EST LRTI (lower respiratory tract infection) Procedure Note - Reyes Blanc MD / Deshaun Smart DO - 07/10/2023 3:25 PM ESTThis note is in progress. EXAM XR CHEST 2 VIEWS-07/10/2023 3:25 pm HISTORY cough, crackles LLF TECHNIQUE: Frontal and lateral views of the chest COMPARISON: None FINDINGS No consolidation, pleural effusion, or pneumothorax. The cardiacsilhouette is within normal limits. IMPRESSION IMPRESSION No acute radiographic findings in the chest. documented in this encounter Visit Diagnoses Diagnosis Herpes zoster without complication- Primary Herpes zoster without mention of complication LRTI (lower respiratory tract infection) Other diseases of respiratory system, not elsewhere classified Pneumonia of right lower lobe due to infectious organism documented in this encounter Care Teams Credit Specialist Relationship Specialty Start Date End Date Barry Latif PA-C [address] [place] [address] [place] [address] PCP - General Physician Bunker Worker 01/10/23 documented as of this encounter
--- OUTSIDE RECORDS SUMMARY | 2023-10-06 14:50 | External Medical Summary | Summary of Care ---
Author Name Unknown Organization [facility] Address [address] [place] [address] Phone [phone] Care Team Providers Care Technical Adjuster Name Role Phone Barry Latif PA-C Primary Care Provid er Reason for Visit * Reason Onset Date Comments Test Results 07/10/2023 Encounter Details Date Type Department Care Team ([facility] st Contact Info) Description 07/10/2023 Telephone [facility] [place] [address] [place] [phone] Nitish Murillo PA-C [address] [facility] [address] [place] [address] Test Results Allergies No known active allergiesdocumented as of this encounter (statuses as of 07/12/2023) Medications Medication Sig Dispensed Refills Start Date [...] as of this encounter (statuses as of 07/12/2023) Active Problems No known active problems documented as of this encounter (statuses as of 07/12/2023) Social History Tobacco Use Types Packs/Day Years Used Date Smoking Tobacco: Never Smokeless Tobacco: Former Sex and Gender Information Value Date Recorded Sex Assigned at Not on file Gender Identity Not on file Sexual Orientation Not on file Job Start Date Occupation Industry Not on file Not on file Not on file documented as of this encounter Miscellaneous Notes * Telephone Encounter - [place] LPN - 07/12/2023 11:01 AM EST Tried calling pt at 1102 no answer and no voicemail. Please try later. * Telephone Encounter - Nitish Murillo PA-C - 07/10/2023 4:10 PM EST Xray came back normal- no pneumonia seen- I would advise take medication anyway as written- follow up if needed documented in this encounter Plan of Treatment [...] filedocumented as of this encounter Care Teams Technical Adjuster Relationship Specialty Start Date End Date Barry Latif PA-C [address] [place] [address] [place] [id number] PCP - General Physician News Photographer 01/10/23 documented as of this encounter
--- OUTSIDE RECORDS SUMMARY | 2023-10-06 14:50 | External Medical Summary | Summary of Care ---
Author Name Unknown Organization [facility] Address [address] [place] [address] Phone [phone] Care Team Providers Care Patrol Sergeant Sheriff[employer] Name Role Phone Barry Latif PA-C Primary Care Provid er Reason for Visit * Reason Onset Date Comments Test Results 07/10/2023 Encounter Details Date Type Department Care Team ([facility] st Contact Info) Description 07/10/2023 Telephone [facility] [place] [email or web address] [place] [phone] Nitish Murillo PA-C [address] [facility] [address] [place] [address] Test Results Allergies No known active [...] encounter Miscellaneous Notes * Telephone Encounter - Mindy Taylor MED ASSIST - 07/12/2023 2:14 PM EST I identified pt by name and , verified by patient. Pt has been informed of below message and verbalized understanding. * Telephone Encounter - [place] LPN [...] filedocumented as of this encounter Care Teams Patrol Sergeant Sheriff[employer] Relationship Specialty Start Date End Date Barry Latif PA-C [address] [place] [address] [place] [address] PCP - General Physician Sports Medicine Specialist 01/10/23 documented as of this encounter
--- OUTSIDE RECORDS SUMMARY | 2023-10-06 14:50 | External Medical Summary | Summary of Care ---
Author Name Unknown Organization [facility] Address [address] [place] [address] Phone [phone] Care Team Providers Care Director It Name Role Phone Barry Latif PA-C Primary Care Provid er Reason for Visit * Reason Comments Cough Encounter Details Date Type Department Care Team (Latest Contact Info) Description 07/10/2023 5:20 PM EST [facility] [place] [address] [place] [phone] Nitish Murillo PA-C [address] [facility] [address] [place] [phone] Herpes zoster without complication*; LRTI (lower respiratory tract infection); Pneumonia of right lower lobe due to infectious organism Allergies No known active allergiesdocumented as of this encounter (statuses as of 07/11/2023) Medications Medication Sig Dispensed Refills Start Date [...] as of this encounter (statuses as of 07/11/2023) Active Problems No known active problems documented as of this encounter (statuses as of 07/11/2023) Social History Tobacco Use Types Packs/Day Years [...] old male that presents for Cough 2 wks of chest congestion, cough- took prednisone- 5 dys of doxy- is no better- rash on L neck x1 dy- itchy- vision ok- no eye pain Cough This [...] from the original note were not included. [id number] Shingles (Herpes Zoster) Talk to your healthcare [...] calm itchy skin. Ask your provider about [id number]-[id number] pain relievers. If your pain is severe, [...] time to get vaccinated. Last Reviewed Date: 09/29/202119995467-4593 The [employer]. All rights reserved. This information is not [...] PM EST LRTI (lower respiratory tract infection) documented in this encounter Results * XR CHEST 2 VIEWS (07/10/2023 3:25 PM EST) Anatomical Region Laterality Modality Chest Digital Radiogra phy 07/10/2023 3:37 PM EST Impressions 07/10/2023 3:54 PM EST IMPRESSION No acute radiographic findings in the chest. I have personally reviewed this examination and agree with the resident/fellow physician's interpretation. Narrative 07/10/2023 3:54 PM EST EXAM XR CHEST 2 VIEWS-07/10/2023 3:25 pm HISTORY cough, crackles LLF TECHNIQUE: Frontal and lateral views of the chest COMPARISON: None FINDINGS No consolidation, pleural effusion, or pneumothorax. The cardiac silhouette is within normal limits. Mild degenerative changes of the osseous structures. Procedure Note Reyes Blanc MD - 07/10/2023 EXAM XR CHEST 2 VIEWS-07/10/2023 3:25 pm HISTORY cough, crackles LLF TECHNIQUE: Frontal and lateral views of the chest COMPARISON: None FINDINGS No consolidation, pleural effusion, or pneumothorax. The cardiacsilhouette is within normal limits. Mild degenerative changes of theosseous structures. IMPRESSION IMPRESSION No acute radiographic findings in the chest. I have personally reviewed this examination and agree with the resident/fellow physician's interpretation. Nitish Murillo PA-C RADIOLOGY (RAD G ENERAL) documented in this encounter Visit Diagnoses Diagnosis Herpes zoster without complication- Primary Herpes zoster without mention of complication LRTI (lower respiratory tract infection) Other diseases of respiratory system, not elsewhere classified Pneumonia of right lower lobe due to infectious organism documented in this encounter Care Teams Director It Relationship Specialty Start Date End Date Barry Latif PA-C [address] [place] [address] [place] [address] PCP - General Physician Decision Support Manager 01/10/23 documented as of this encounter
[2023-10-06] MEDS: CHLORTHALIDONE 25 MG TAB PO SCH (17:03)
[2023-10-06 18:43] LABS: Appearance Urine Clear (Clear); Bilirubin Urine Negative (Negative); Blood Urine Negative (Negative); Color Urine Yellow; Glucose Urine UA 3+ (Negative); Ketones Urine Trace (Negative); Leukocyte Esterase Urine Negative (Negative); Nitrite Urine Negative (Negative); Protein Urine Negative (Negative); Specific Gravity Urine 1.034 (1.000-1.030); Urobilinogen Urine Negative (Negative); pH Urine 5.5 (4.5-7.5)
[2023-10-06 19:06] LABS: Amphetamines+Metham, Urine Neg (Neg); Barbiturates, Urine Neg (Neg); Benzodiazepine, Urine Neg (Neg); Cocaine, Urine Neg (Neg); MDMA (Ecstacy), Urine Neg (Neg); Marijuana, Urine Neg (Neg); Methadone, Urine Neg (Neg); Opiate, Urine Neg (Neg); Phencyclidine, Urine Neg (Neg)
[2023-10-06] MEDS: amLODIPine BESYLATE 5 MG TAB PO SCH (20:55)
[2023-10-06] MEDS ORDERED: amLODIPine BESYLATE 5 MG TAB PO SCH (21:00)
--- NOTE | 2023-10-07 07:31 | Ultrasound Report ---
DOPPLER ULTRASOUND OF THE RENAL ARTERIES CLINICAL HISTORY: Hypertension. COMPARISON STUDY: No priors. TECHNIQUE: Doppler sonography of the renal arteries was performed to assess renal artery stenosis. Im ages are reviewed in the transverse and longitudinal planes. FINDINGS: The kidneys appear normal in size and echotexture. The right kidney measures 12.9 cm in length and th e left kidney measures 11.6 cm in length. There is no hydronephrosis. On the right, intrarenal arterial resistive indices range from 0.65 to 0.69. Intrarenal arterial wave forms are normal with brisk upstrokes. The right renal arterial waveform is normal, and velocities wi thin the right renal artery measure up to 113 cm/sec. The right renal vein is patent. On the left, intrarenal arterial resistive indices range from 0.56 to 0.65. Intrarenal arterial wave forms are normal with brisk upstrokes. The left renal arterial waveform is normal, and velocities wit hin the left renal artery measure up to 123 cm/sec. The left renal vein is patent. The abdominal aorta is patent. Velocities within the abdominal aorta measure up to 100 cm/s. Cholelithiasis is noted in the gallbladder. IMPRESSION: 1. There is no sonographic evidence of renal artery stenosis. 2. Cholelithiasis. ACT 112: Negative or not required by law. Electronically signed by: Kyree Baird M.D. 10/07/2023 7:29 AM
[2023-10-07] MEDS: ACETAMINOPHEN 325 MG TAB PO PRN (08:23)
[2023-10-07 08:57] LABS: Hematocrit (blood only) 42.4 % (42.0-52.0); Hemoglobin 14.4 g/dl (14.0-18.0); Mean Corpuscular Hemoglobin 29.1 pg (25.0-34.0); Mean Corpuscular Volume 85.8 fL (80.0-100.0); Mean Platelet Volume 8.8 fL (9.4-12.4); Platelet Count 241 K/uL (130-400); RDW Coefficient of Variation 12.5 % (11.5-14.5); RDW Standard Deviation 38.6 fL (36.4-46.3); Red Blood Count 4.94 M/uL (4.70-6.10); White Blood Count 8.05 K/ul (4.8-10.8)
[2023-10-07 09:21] LABS: BUN Creatinine Ratio 21.3 (10-20); Calcium 8.9 mg/dl (8.6-10.3); Creatinine Clr Calc Pharmacy 125.2 ml/min; Est GFR (African American) 117.2 ml/min; Est GFR (Non-African American) 101.1 ml/min; Magnesium 1.9 mg/dl (1.7-2.4); Phosphorus 3.5 mg/dl (2.5-4.9); Potassium 3.7 mmol/L (3.5-5.1)
[2023-10-07] MEDS: SPIRONOLACTONE 12.5 MG TAB PO SCH (10:02)
--- NOTE | 2023-10-07 12:54 | Discharge Summary ---
Date of Service October 07, 2023 Admission HPI Per Admitting Provider History obtained from patient, family, and records. Medical history significant for hypertension, DM 2 on oral medications. Patient has had blood pressure elevation as a young adult but was only started on blood pressure medicine about 10 years ago. Does not recall prior workup for secondary hypertension. Patient noted having intermittent pressure-like headache symptoms with bilateral blurred vision, feeling foggy, and short tempered last week. Usual work stressors. No inordinate OTC NSAID intake. Compliant with home BP med. Possible sleep apnea with witnessed apneic events as per . No chest pain, no SOB. Patient seen at [facility] last week. SBP 190s. CT head and renal ultrasound unremarkable. ER provider started patient on Coreg following advice of ingot buggy operator on-call. Outpatient nephrology follow-up recommended. Unimproved blood pressure and worsening symptoms at home despite compliance with new Coreg Rx. SBP 190s to 210s as per . Patient directed to ER for evaluation. SBP 220s upon arrival at the ER. IV hydralazine and Coreg administered at the ER. SBP currently 180s. Medical History as above Surgical History : Knee surgery Family History : Heart disease, DM, stroke Personal/Social history : Non-smoker, occasional EtOH intake, assistant county attorney Admission Exam Per Admitting Provider GENERAL: Comfortable, pleasant, no respiratory distress SKIN: Normal color, warm HEENT: [place] palpebral conjunctivae, no ptosis, moist buccal mucosa NECK : Supple, no tenderness CHEST : CTA, no tenderness HEART : RRR, no obvious murmurs ABDOMEN: no distention, nontender EXTREMITIES : No LE swelling/tenderness, no other conspicuous deformities noted NEUROLOGIC : Coherent, no facial asymmetry, no other gross focality Principal Diagnosis Hypertensive urgency Uncontrolled diabetes Possible sleep apnea Discharge Exam GENERAL: Comfortable, pleasant, no respiratory distress SKIN: Normal color, warm HEENT: [place] palpebral conjunctivae, no ptosis, moist buccal mucosa NECK : Supple, no tenderness CHEST : CTA, no tenderness HEART : RRR, no obvious murmurs ABDOMEN: no distention, nontender EXTREMITIES : No LE swelling/tenderness, no other conspicuous deformities noted NEUROLOGIC : Coherent, no facial asymmetry, no other gross focality Discharge Data Allergies Allergy/AdvReac Type Severity Reaction Status Date / Time No Known Allergies Allergy Unverified 10/05/23 17:48 Consultations 10/05/23 21:12 ED Decision to Admit Stat 10/06/23 06:11 Consult Nephrology Routine Ordered Studies 10/05/23 16:16 MR brain wo con Stat 10/07/23 US duplex renal artery Urgent Hospital Course (1) Hypertensive urgency: Plan 58-year-old male with PMH of HTN/compliant with home BP medications, T2DM on oral/injection medications presented with failure to control blood pressure at home [patient was recently started on Coreg on top of his prior losartan] with progressive worsening and consistent high blood pressure readings associated with intermittent pressure-like headache symptoms. Of note, he was seen recently at [facility] where Coreg was added and CT head and renal ultrasound were done/were unremarkable. He was managed for the following: Hypertensive urgency: Patient came in with increased blood pressure associated with headache Recently evaluated at [facility], Coreg was added. Admitting brain MRI and CXR with no acute finding. Admitting troponin negative, EKG with no acute ST or T changes. Echo reviewed, consistent with chronic hypertension. Nephrology reviewed, patient being discharged on amlodipine, losartan, Coreg, spironolactone, chlorthalidone. Renal artery scan negative for stenosis, patient will be discharged with nephrology recommendation, follow-up with nephrology in 1 to 2 weeks time upon discharge. Patient has been made aware. Patient reports feeling better, blood pressure though high they are better controlled today. Reports improvement in his headache. Patient to measure blood pressure twice a day, maintain a log to take to his nephrology office upon discharge. Uncontrolled diabetes: Patient reports having A1c of 14 about few years ago, A1c of 8.7 currently. Patient on Jardiance, metformin and Xultophy at home. Patient and his has been updated regarding the need for tighter control of his diabetes. They stated that they will follow-up with diabetic clinic upon discharge for medication changes. Lifestyle modification has been encouraged. inclusion special educator consult. Continue prior to arrival diabetic medication until establishing with diabetic clinic which showed basically happen Within a Week Time upon Discharge. Possible sleep apnea: Patient with witnessed apneic events as per . Nocturnal pulse ox indicated oxygen requirement during sleep. Patient will be discharged on oxygen. Sleep study as an outpatient. Might be contributing to BP elevation. DVT prophylaxis per Lovenox subcu Full code Patient is being discharged to home with following instruction at the point of discharge: Follow-up with your primary care physician within a week time and likely you will need labs CBC/CMP/magnesium/phosphorus. For your uncontrolled hypertension, nephrology evaluated you while in the hospital. In addition to your home doses of Coreg and losartan; amlodipine/chlorthalidone/Aldactone have been added. Follow-up with nephrology in 1 to 2 weeks time upon discharge. You will need lab test mentioned above in a week time, coordinate either with your PCP office or nephrology office to set up the test. For concerns of sleep apnea, you underwent nocturnal pulse oximetry test, you will be discharged on oxygen to be used while sleeping. You will need outpatient sleep study, coordinate with your PCP office to set up the test. As we have discussed at bedside for your uncontrolled diabetes, follow-up with diabetic clinic within a week time upon discharge for further management of your diabetic medication. Until then continue with your prior to arrival diabetic medications. As discussed at the bedside, gallstones were noted during renal artery scan. Since you are not symptomatic, no need for acute intervention for now. You can follow-up for long-term monitoring with your PCP office. Take your medications as prescribed. Please make sure that you are able to get your medications today by calling your pharmacy before you leave the hospital so that your treatment continuity is not broken. Text document was generated using [employer] voice recognition software. It may contain grammatical or spelling errors. Kindly contact undersigned for clarification of any documentation item in question. Home Health Attestation I certify that this patient is under my care and that I, or a physicians pathology assistant working with me, had a face to-face encounter that meets the home health [id number] encounter requirements with this patient. The encounter with the patient was in whole, or in part, for the following medical condition, which is the primary reason for home health care (list medical condition): I certify that, based on my findings, the following services are medically necessary home health services: My clinical findings support the need for the above services because: Further, I certify that my clinical findings support that this patient is homebound (i.e. absences from home require considerable and taxing effort and are for medical reasons or muslim services or infrequently or of short duration when for other reasons) because: Certification for Home Health Services: Based on the above findings, I certify that this patient is confined to the home and needs intermittent fci care, physical therapy and/or speech therapy or continues to need occupational therapy. The patient is under my care, and I have initiated the establishment of the plan of care. This patient will be followed by a physician who will periodically review the plan of care. Total Time Total Time Spent Total Time Spent (In Minutes): 45 Discharge Plan Discharge Items Patient Disposition: Home - Self-Care Reason For Visit: HTN CRISIS Discharge Diagnosis: Hypertensive urgency Uncontrolled diabetes Possible sleep apnea Activity: Resume your previous activity Non-emergency contact: Primary Care Provider Call non-emergency contact if: you have any medication questions, your symptoms worsen and your temperature is above 101.5 Follow-up/Referrals: Di Palomares CRNP [Primary Care Provider] - 10/10/23 2:20 pm Diet: Carb Consistent or DM2, Heart Healthy and Low Sodium (2gm) Addtl Attending Provider Instructions: Follow-up with your primary care physician within a week time and likely you will need labs CBC/CMP/magnesium/phosphorus. For your uncontrolled hypertension, nephrology evaluated you while in the hospital. In addition to your home doses of Coreg and losartan; amlodipine/chlorthalidone/Aldactone have been added. Follow-up with nephrology in 1 to 2 weeks time upon discharge. You will need lab test mentioned above in a week time, coordinate either with your PCP office or nephrology office to set up the test. For concerns of sleep apnea, you underwent nocturnal pulse oximetry test, you will be discharged on oxygen to be used while sleeping. You will need outpatient sleep study, coordinate with your PCP office to set up the test. As we have discussed at bedside for your uncontrolled diabetes, follow-up with diabetic clinic within a week time upon discharge for further management of your diabetic medication. Until then continue with your prior to arrival diabetic medications. As discussed at the bedside, gallstones were noted during renal artery scan. Since you are not symptomatic, no need for acute intervention for now. You can follow-up for long-term monitoring with your PCP office. Take your medications as prescribed. Please make sure that you are able to get your medications today by calling your pharmacy before you leave the hospital so that your treatment continuity is not broken. Pending Studies at Discharge: Yes Stand-Alone Forms: My [employer], Smoking Cessation Medications and DC Order Prescriptions: New amlodipine [Norvasc] 5 mg Tablet 5 mg PO HS Qty: 30 0RF spironolactone 25 mg Tablet 12.5 mg PO QAM Qty: 15 0RF chlorthalidone 25 mg Tablet 12.5 mg PO QAM Qty: 15 0RF Continued carvedilol 12.5 mg tablet 12.5 mg PO BID losartan 100 mg tablet 100 mg PO QAM metformin 500 mg tablet extended release 24 hr 1 mg PO BID Jardiance 25 mg tablet 25 mg PO QAM Discharge Orders: Discharge Order (Routine); Ordered 10/07/23 Ordered By: Eve Thompson/Other Patient Handouts: Diabetes and Heart Disease, Managing Type 2 Diabetes, Healthy Meals for Diabetes, Exercise to Manage Your Blood Sugar, Diabetes- Know Your Goal Numbers Admission Data Admit Date/Time: 10/05/23 21:45 Attending Provider: Eve Narayanan Admit Provider: Jayson Bravo Primary Care Provider: Di Palomares Other Providers: Jayson Bravo; Galina Gibbons; Amilcar Phillip; Keely Rosales Japheth E.; Amarilis Caban; Juanis Funes
[2023-10-07] MEDS: SPIRONOLACTONE 12.5 MG TAB PO ONE (14:40)
[2023-10-07] MEDS: CHLORTHALIDONE 25 MG TAB PO ONE (14:40)
== END 2023-10-07 15:15 | disposition home or self-care (01) ==
LOC: EDINP 12:05 → ED 12:05 → 2S 10-06 06:12